=== PATIENT | male | born 1965 | race African-American/Black ===

== ENCOUNTER 2016-09-24 15:11 | Emergency (ER) | payer SELFPAY ==
--- NOTE | 2016-09-24 15:36 | ER Document Report ---
ED Medical Screen (RME) - General Stated Complaint: COUGHING BLOOD Notes: 50 yo male c/o coughing up blood since last pm. bright red blood. no recent illness. + intermittant mid chest pain since last week. + shortness of breath. + smoker. + heavy ETOH. + hx/o HTN, out of meds x 3 months. TRAVEL OUTSIDE OF THE [place] IN LAST 30 DAYS: No - Related Data Allergies/Adverse Reactions: No Known Allergies Allergy (Unverified 10/26/15 13:36) Past Medical History - Past Medical History Cardiac Medical History: Reports: Hx Hypertension Physical Exam - Vital signs Vitals: Temp Pulse Resp BP Pulse Ox 98.5 F 85 18 260/130 H 98 09/24/16 15:29 09/24/16 15:29 09/24/16 15:29 09/24/16 15:29 09/24/16 15:29 Course - Vital Signs Vital signs: Temp Pulse Resp BP Pulse Ox 98.5 F 85 18 260/130 H 98 09/24/16 15:29 09/24/16 15:29 09/24/16 15:29 09/24/16 15:29 09/24/16 15:29
[2016-09-24 16:06] LABS: ABSOLUTE BASOPHILS # (AUTO) 0.1 10^3/uL (0.0-0.2); ABSOLUTE EOSINOPHILS # (AUTO) 0.1 10^3/uL (0.0-0.6); ABSOLUTE LYMPHOCYTES (AUTO) 4.5 10^3/uL (0.5-4.7); ABSOLUTE MONOCYTES (AUTO) 0.6 10^3/uL (0.1-1.4); ABSOLUTE NEUT (AUTO) 5.3 10^3/uL (1.7-8.2); BASOPHILS % (AUTO) 0.6 % (0-2); EOSINOPHILS % (AUTO) 0.7 % (0-6); HEMATOCRIT 42.6 % (37.9-51.0); HEMOGLOBIN 14.7 g/dL (13.5-17.0); HGB HCT DIFFERENCE 1.5; LYMPHOCYTES % (AUTO) 42.3 % (13-45); MEAN CORPUSCULAR HGB CONC 34.4 g/dL (32.0-36.0); MEAN CORPUSCULAR VOLUME 93 fl (80-97); MONOCYTES % (AUTO) 5.9 % (3-13); RED BLOOD COUNT 4.59 10^6/uL (4.35-5.55); RED CELL DISTRIBUTION WIDTH 12.7 % (11.5-14.0); SEGMENTED NEUTROPHILS % (AUTO) 50.5 % (42-78); WHITE BLOOD COUNT 10.6 10^3/uL (4.0-10.5)
[2016-09-24 16:25] LABS: ALANINE AMINOTRANSFERASE 99 U/L (21-72); ALBUMIN 4.2 g/dL (3.5-5.0); ALKALINE PHOSPHATASE 281 U/L (38-126); ANION GAP 9 (5-19); ASPARTATE AMINO TRANSFERASE 103 U/L (17-59); BILIRUBIN,TOTAL 0.9 mg/dL (0.2-1.3); BLOOD UREA NITROGEN 15 mg/dL (7-20); CALCIUM 9.6 mg/dL (8.4-10.2); CARBON DIOXIDE 29 mmol/L (22-30); CHLORIDE 97 mmol/L (98-107); CREATINE KINASE 159 U/L (55-170); CREATININE RESULT 0.83 mg/dL (0.52-1.25); GLUCOSE 353 mg/dL (75-110); LIPASE 186.6 U/L (23-300); POTASSIUM 4.2 mmol/L (3.6-5.0); SODIUM 135.3 mmol/L (137-145)
[2016-09-24 16:44] LABS: CREATINE KINASE MB 1.56 ng/mL (<4.55); TROPONIN I 0.02 ng/mL
[2016-09-24] MEDS ORDERED: LOSARTAN POTASSIUM 50 MG TABLET PO ONE (17:58)
[2016-09-24] MEDS ORDERED: METOPROLOL TARTRATE 50 MG TABLET PO ONE (17:59)
[2016-09-24] MEDS ORDERED: AMLODIPINE BESYLATE 10 MG TABLET PO ONE (17:59)
--- NOTE | 2016-09-24 18:03 | ER Document Report ---
ED General - General Mode of Arrival: Ambulatory Information source: Patient TRAVEL OUTSIDE OF THE [place] IN LAST 30 DAYS: No - HPI Patient complains to provider of: hemoptysis Onset: Other - last night Associated symptoms: Other - see above <ARSENIO DOMINGUEZ - Last Filed: 09/24/16 17:56> <DEVIN BRADY - Last Filed: 09/24/16 19:14> - General Chief Complaint: Chest Pain Stated Complaint: COUGHING BLOOD Notes: 50 year old male with history of hypertension presents to the ED complaining of hemoptysis that started last night while eating a grape. Patient describes the sputum as bright red blood. Patient states that he has not been taking his hypertensive medication for 6 months now and is aware that he is hypertensive. Patient admits that he can't afford a doctor. Patient claims that he has no refills left on his prescription, but does have a few pills that he has saved. Patient was last seen in the ED on 10/26/2015 where he was admitted and discharged with Norvasc 10mg daily, Metoprolol 50mg BID, Losartan 100mg daily, Ibuprofen, and [place]. Patient states that he does not want to be admitted today and reiterates that the last time he was here for hypertension, his blood pressure was only brought down by a few points over the course of "three days." (ARSENIO DOMINGUEZ) - Related Data Allergies/Adverse Reactions: No Known Allergies Allergy (Unverified 10/26/15 13:36) Past Medical History - General Information source: Patient - Social History Smoking Status: Current Every Day Smoker Chew tobacco use (# tins/day): No Frequency of alcohol use: daily Family History: Hypertension - Past Medical History Cardiac Medical History: Reports: Hx Hypertension Renal/ Medical History: Denies: Hx Peritoneal Dialysis Surgical Hx: Negative <ARSENIO DOMINGUEZ - Last Filed: 09/24/16 17:56> Review of Systems - Review of Systems Constitutional: No symptoms reported EENT: No symptoms reported Cardiovascular: No symptoms reported Respiratory: See HPI, Cough, Hemoptysis Gastrointestinal: No symptoms reported Genitourinary: No symptoms reported Male Genitourinary: No symptoms reported Musculoskeletal: No symptoms reported Skin: No symptoms reported Hematologic/Lymphatic: No symptoms reported Neurological/Psychological: No symptoms reported -: Yes All other systems reviewed and negative <ARSENIO DOMINGUEZ - Last Filed: 09/24/16 17:56> Physical Exam - Vital signs Interpretation: Hypertensive - General General appearance: Alert In distress: None - HEENT Head: Normocephalic, Atraumatic Eyes: Normal Extraocular movements intact: Yes Pupils: PERRL Mouth/Lips: Other - Large 1st upper right molar is actively bleeding and appears to be the source of blood that the patient is coughing up.. No: Normal - Respiratory Respiratory status: No respiratory distress - Cardiovascular Rhythm: Regular - Abdominal Inspection: Normal - Back Back: Normal - Extremities General upper extremity: Normal inspection, Normal ROM General lower extremity: Normal inspection, Normal ROM - Neurological Neuro grossly intact: Yes - Psychological Associated symptoms: Normal affect, Normal mood - Skin Skin Temperature: Warm Skin Moisture: Dry Skin Color: Normal <ARSENIO DOMINGUEZ - Last Filed: 09/24/16 17:56> <DEVIN BRADY - Last Filed: 09/24/16 19:14> - Vital signs Vitals: Temp Pulse Resp BP Pulse Ox 98.5 F 85 18 260/130 H 98 09/24/16 15:29 09/24/16 15:29 09/24/16 15:29 09/24/16 15:29 09/24/16 15:29 (ARSENIO DOMINGUEZ) (DEVIN BRADY) Course - Laboratory Result Diagrams: 09/24/16 15:45 09/24/16 15:45 <ARSENIO DOMINGUEZ - Last Filed: 09/24/16 17:56> - Laboratory Result Diagrams: 09/24/16 15:45 09/24/16 15:45 - EKG Interpretation by Me EKG shows normal: Sinus rhythm, [place], ST-T Waves. abnormal: Intervals, QRS Complexes Rate: Normal - 81 Rhythm: NSR [place]/QRS: IVCD Voltage: Consistant with LVH P Waves: LAE When compared to previous EKG there are: No significant change <DEVIN BRADY - Last Filed: 09/24/16 19:14> - Re-evaluation Re-evalutation: 09/24/16 18:52 The patient's A1c is 10.6 with a blood sugar of 353 I reviewed the lab findings and reinforced the risks to his long-term health for not treating his blood pressure, and now leading diabetes go untreated. He wants to go home now, his blood pressure still remains elevated, he tells me that I will not be able to get it down because he stressed and refuses to stay to allow me to give additional medication to get his pressure in the lower. He is also demanding a 3 month supply of his medications because he states he cannot afford to go see a doctor. I repeated again that if he saved his cigarette money and beer money, he would have plenty of money for medication and doctor's visit. He lists his occupation as unemployed with no clear explanation or justification for this that I can see. I told him I would provide three-month supply of medication, he would have to promise that he would try to see a doctor and he did make that promise. (DEVIN BRADY) - Vital Signs Vital signs: Temp Pulse Resp BP Pulse Ox 98.5 F 85 21 H 221/105 H 96 09/24/16 15:29 09/24/16 15:29 09/24/16 18:31 09/24/16 18:31 09/24/16 18:31 (ARSENIO DOMINGUEZ) (DEVIN BRADY) - Laboratory Laboratory results interpreted by me: 09/24/16 09/24/16 09/24/16 15:45 15:45 15:45 WBC 10.6 H Sodium 135.3 L Chloride 97 L Glucose 353 H Hemoglobin A1c % 10.6 H AST 103 H ALT 99 H Alkaline Phosphatase 281 H (ARSENIO DOMINGUEZ) (DEVIN BRADY) Discharge <ARSENIO DOMINGUEZ - Last Filed: 09/24/16 17:56> <DEVIN BRADY - Last Filed: 09/24/16 19:14> - Discharge Clinical Impression: Uncontrolled hypertension High blood pressure Qualifiers: Hypertension type: essential hypertension Qualified Code(s): I10 - Essential ( primary) hypertension Diabetes Qualifiers: Diabetes mellitus type: type 2 Diabetes mellitus complication status: without complication 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 This is called "hypertension." You need treatment of your blood pressure. Hypertension: The patient has been informed that they have Hypertension based on a blood pressure reading in the emergency department. I recommend that the patient call a primary care provider or a physician of their choice this week to arrage follow up for further management Hypertension. If left untreated, high blood pressure greatly increases your risk of heart attack and stroke. Please don't ignore this problem. If you have blood pressure medicine but aren't using it regularly, start taking it again. Some simple things you can do to help are: Get some aerobic exercise for at least 20 minutes on a daily basis. (See your doctor before beginning any new exercise program.) Eat a low-fat diet. Lose excess weight. Avoid salty foods and avoid adding salt to any of the foods you eat. Avoid diet pills, decongestants, "energizing" herbs, and other medicines that elevate blood pressure. There are many different medicines that treat blood pressure. If your medication causes unpleasant side effects, call your doctor. There are others you can try. Treating hypertension is a life-long investment in your health. Diabetes: You have an abnormally high blood sugar called diabetes. Uncontrolled high blood sugar leads to early heart disease, strokes, nerve damage, eye damage, and kidney damage. All diabetics should follow a diet designed to control the blood sugar. Overweight diabetics should exercise regularly and lose weight. If this is not sufficient to control the blood sugar, pills or insulin shots are necessary. Younger people who develop diabetes almost always require insulin daily. Home testing of blood sugars or urine sugar is required. Diabetic teaching is available to help you figure insulin doses and monitor the blood sugar. Call the physician if there is faintness, excess sleepiness, or very rapid breathing. If hypoglycemia (LOW blood sugar) develops, symptoms are shakiness, weakness, sweating, and confusion. In this case, you should eat or drink something with sugar at once. //////////////////////////////////////////////////////////////////////////////// //////////////////////////////////////////////////////////////////////////////// You have decided to leave AGAINST MEDICAL ADVICE before we have gotten your blood pressure down to a reasonable level. You have been informed that out of control blood pressure can lead to heart attack, stroke, and intracranial hemorrhage. You have decided to take those risks and will not hold any of your providers here responsible for any poor outcome. Take medications as prescribed for high blood pressure and diabetes. Try to lose weight. Stop smoking and drinking alcohol. Check your blood pressure at home every day. Follow-up with a local medical provider in the next several days to manage your high blood pressure and diabetes. RETURN TO THE EMERGENCY ROOM IF ANY NEW OR WORSENING SYMPTOMS. Prescriptions: Amlodipine Besylate [Norvasc 10 mg Tablet] 10 mg PO DAILY #30 tablet Losartan Potassium [Cozaar 100 mg Tablet] 100 mg PO DAILY #30 tablet Metformin HCl 850 mg PO Q12 #60 tablet Metoprolol Tartrate [Lopressor 50 mg Tablet] 50 mg PO Q12H #60 tablet Scribe Attestation: 09/24/16 19:10 I personally performed the services described in the documentation, reviewed and edited the documentation which was dictated to the scribe in my presence, and it accurately records my words and actions. (DEVIN BRADY) Scribe Documentation - Scribe Written by Sharri:: Sharri Weber, 09/24/2016 [id number] acting as scribe for :: Mayra <ARSENIO DOMINGUEZ - Last Filed: 09/24/16 17:56>
[2016-09-24 18:54] VITALS: BP 229/121
[2016-09-24] MEDS ORDERED: CLONIDINE HCL 0.2 MG TABLET PO ONE (19:03)
[2016-09-24] MEDS ORDERED: METFORMIN HCL 850 MG TABLET PO PRN (19:03)
--- NOTE | 2016-09-24 21:45 | EKG REPORT ---
SEVERITY:- ABNORMAL ECG - SINUS RHYTHM PROBABLE LEFT ATRIAL ABNORMALITY NONSPECIFIC INTRAVENTRICULAR CONDUCTION DELAY LVH WITH SECONDARY REPOLARIZATION ABNORMALITY : Confirmed by: Juana Velez 24-Sep-2016 21:44:03
== END 2016-09-24 19:20 | disposition left against medical advice (07) ==
LOC: ER 15:11
DX: I10 Essential (primary) hypertension (principal); E11.9 Type 2 diabetes mellitus without complications; R04.2 Hemoptysis; R07.9 Chest pain, unspecified; R06.02 Shortness of breath; F17.200 Nicotine dependence, unspecified, uncomplicated
CPT/HCPCS: 36415; 71020; 80053; 82550; 82553; 83036; 83690; 84484; 85025; 93005; 93010; 99285

== ENCOUNTER 2018-09-04 09:09 | Emergency (ER) | payer SELFPAY ==
[2018-09-04 09:20] VITALS: BP 258/136
[2018-09-04] MEDS ORDERED: CLONIDINE HCL 0.2 MG TABLET PO ONE (10:58)
[2018-09-04] MEDS ORDERED: OXYCODONE-ACETAMINOPHEN 5-325 MG TABLET PO ONE (10:58)
--- NOTE | 2018-09-04 11:00 | ER Document Report ---
ED Medical Screen (RME) - General Chief Complaint: Abdominal Pain Stated Complaint: ABDOMINAL PAIN Time Seen by Provider: 09/04/18 10:54 Notes: 52-year-old male patient comes emergency room complaining of abdominal pain for a few months is been getting worse. He is found to have a blood pressure of 258/136 which she states is normal for him. He does not take any medications and does not go to see doctors. He does drink alcohol on a daily basis. He was admitted here almost 3 years ago for accelerated hypertension. Brief exam shows a very tender firm mass in the supraumbilical region which is very suggestive of an incarcerated hernia. I have greeted and performed a rapid initial assessment of this patient. A comprehensive ED assessment and evaluation of the patient, analysis of test results and completion of the medical decision making process will be conducted by additional ED providers. TRAVEL OUTSIDE OF THE [place] IN LAST 30 DAYS: No - Related Data Allergies/Adverse Reactions: No Known Allergies Allergy (Unverified 10/26/15 13:36) Past Medical History - Past Medical History Cardiac Medical History: Reports: Hx Hypertension Renal/ Medical History: Denies: Hx Peritoneal Dialysis Physical Exam - Vital signs Vitals: Temp Pulse Resp BP Pulse Ox 98.5 F 80 16 258/136 H 100 09/04/18 09:18 09/04/18 09:18 09/04/18 09:18 09/04/18 09:18 09/04/18 09:18 Course - Vital Signs Vital signs: Temp Pulse Resp BP Pulse Ox 98.5 F 80 16 258/136 H 100 09/04/18 09:18 09/04/18 09:18 09/04/18 09:18 09/04/18 09:18 09/04/18 09:18
[2018-09-04 11:37] LABS: ABSOLUTE BASOPHILS # (AUTO) 0.2 10^3/uL (0.0-0.2); ABSOLUTE LYMPHOCYTES (AUTO) 4.6 10^3/uL (0.5-4.7); ABSOLUTE MONOCYTES (AUTO) 0.6 10^3/uL (0.1-1.4); ABSOLUTE NEUT (AUTO) 6.9 10^3/uL (1.7-8.2); BASOPHILS % (AUTO) 1.5 % (0-2); EOSINOPHILS % (AUTO) 0.3 % (0-6); HEMOGLOBIN 16.7 g/dL (13.5-17.0); LYMPHOCYTES % (AUTO) 37.1 % (13-45); MEAN CORPUSCULAR HGB CONC 35.5 g/dL (32.0-36.0); MEAN CORPUSCULAR VOLUME 93 fl (80-97); MONOCYTES % (AUTO) 5.1 % (3-13); PLATELET COUNT 245 10^3/uL (150-450); RED BLOOD COUNT 5.05 10^6/uL (4.35-5.55); TOTAL CELLS COUNTED % (AUTO) 100 %; WHITE BLOOD COUNT 12.3 10^3/uL (4.0-10.5)
[2018-09-04] MEDS ORDERED: NORMAL SALINE 1000 ML 1,000 ML IV ONE (11:59)
[2018-09-04] MEDS ORDERED: MORPHINE SULFATE 10 MG/ML INJ IV ONE (12:02)
[2018-09-04] MEDS ORDERED: ONDANSETRON HCL INJ/PF 4 MG/2 ML SDV IV ONE (12:03)
[2018-09-04 12:53] LABS: ALANINE AMINOTRANSFERASE 98 U/L (21-72); ALBUMIN 4.1 g/dL (3.5-5.0); ALKALINE PHOSPHATASE 171 U/L (38-126); ANION GAP 7 (5-19); ASPARTATE AMINO TRANSFERASE 95 U/L (17-59); BILIRUBIN,DIRECT 0.8 mg/dL (0.0-0.4); BILIRUBIN,TOTAL 1.5 mg/dL (0.2-1.3); BLOOD UREA NITROGEN 11 mg/dL (7-20); CALCIUM 9.4 mg/dL (8.4-10.2); CARBON DIOXIDE 33 mmol/L (22-30); CHLORIDE 99 mmol/L (98-107); CREATINE KINASE 80 U/L (55-170); GLUCOSE 159 mg/dL (75-110); POTASSIUM 3.5 mmol/L (3.6-5.0); SODIUM 139.2 mmol/L (137-145); TOTAL PROTEIN 7.9 g/dL (6.3-8.2)
[2018-09-04] MEDS ORDERED: AMLODIPINE BESYLATE 10 MG TABLET PO ONE (13:39)
--- NOTE | 2018-09-04 13:43 | ER Document Report ---
ED General - General Chief Complaint: Abdominal Pain Stated Complaint: ABDOMINAL PAIN Time Seen by Provider: 09/04/18 10:54 TRAVEL OUTSIDE OF THE [place] IN LAST 30 DAYS: No - HPI Patient complains to provider of: Abdominal pain Notes: Patient coming in for evaluation of abdominal pain. Patient was seen by triage provider note is provided below 52-year-old male patient comes emergency room complaining of abdominal pain for a few months is been getting worse. He is found to have a blood pressure of 258/136 which she states is normal for him. He does not take any medications and does not go to see doctors. He does drink alcohol on a daily basis. He was admitted here almost 3 years ago for accelerated hypertension. Brief exam shows a very tender firm mass in the supraumbilical region which is very suggestive of an incarcerated hernia. Upon my evaluation immediately into the patient's room because of this note. Patient's stating woke up this morning with a small bump in his abdomen is very painful. Of note the patient was noted to be significantly hypertensive in triage states he is noncompliant with his medications has been out of blood pressure medications for "quite some time". Patient denies any fevers chills nausea vomiting diarrhea. - Related Data Allergies/Adverse Reactions: No Known Allergies Allergy (Unverified 10/26/15 13:36) Past Medical History - Social History Smoking Status: Current Every Day Smoker Frequency of alcohol use: daily Family History: Hypertension Patient has suicidal ideation: No Patient has homicidal ideation: No - Past Medical History Cardiac Medical History: Reports: Hx Hypertension Endocrine Medical History: Reports: Hx Diabetes Mellitus Type 2 Renal/ Medical History: Denies: Hx Peritoneal Dialysis Review of Systems - Review of Systems Constitutional: No symptoms reported EENT: No symptoms reported Cardiovascular: No symptoms reported Respiratory: No symptoms reported Gastrointestinal: Abdominal pain Genitourinary: No symptoms reported Male Genitourinary: No symptoms reported Musculoskeletal: No symptoms reported Skin: No symptoms reported Hematologic/Lymphatic: No symptoms reported Neurological/Psychological: No symptoms reported -: Yes All other systems reviewed and negative Physical Exam - Vital signs Vitals: Temp Pulse Resp BP Pulse Ox 98.5 F 80 16 258/136 H 100 09/04/18 09:18 09/04/18 09:18 09/04/18 09:18 09/04/18 09:18 09/04/18 09:18 Interpretation: Hypertensive - General General appearance: Appears well, Alert - HEENT Head: Normocephalic, Atraumatic Eyes: Normal Pupils: PERRL - Respiratory Respiratory status: No respiratory distress Chest status: Nontender Breath sounds: Normal Chest palpation: Normal - Cardiovascular Rhythm: Regular Heart sounds: Normal auscultation Murmur: No - Abdominal Inspection: Normal Distension: No distension Bowel sounds: Normal Tenderness: Tender - Patient with a palpable mass in the mid abdomen with a small umbilical hernia mass is significant tender auscultation over the mass does reveal bowel sounds Organomegaly: No organomegaly - Back Back: Normal, Nontender - Extremities General upper extremity: Normal inspection, Nontender, Normal color, Normal ROM, Normal temperature General lower extremity: Normal inspection, Nontender, Normal color, Normal ROM, Normal temperature, Normal weight bearing. No: Reshma's sign - Neurological Neuro grossly intact: Yes Cognition: Normal Orientation: AAOx4 Tyra Coma Scale Eye Opening: Spontaneous [place] Coma Scale Verbal: Oriented [place] Coma Scale Motor: Obeys Commands Tyra Coma Scale Total: 15 Speech: Normal Motor strength normal: LUE, RUE, LLE, RLE Sensory: Normal - Psychological Associated symptoms: Normal affect, Normal mood - Skin Skin Temperature: Warm Skin Moisture: Dry Skin Color: Normal Course - Re-evaluation Re-evalutation: 09/04/18 15:19 Concern for patient with incarcerated hernia patient was placed in Trendelenburg patient was given IV narcotic pain medication as of this was able to reduce the hernia patient with a small defect did have her surgeon solar installation helper come to evaluate and states the patient follow-up as outpatient as of the hernia is now reduced. Laboratory studies not show slightly elevated LFTs more likely due to the patient's alcohol drinking. Patient was educated about diet hypertension and the need to be on medications and follow-up with primary care physician. Inform ation will be given to the director of social services so that we can establish the patient primary care for his hypertension is uncontrolled also hopefully establish care to initiate treatment for his hernia. Patient was instructed to return to the ER if his hernia becomes stuck again otherwise to apply gentle pressure if it does stick out to reduce it. Patient states understanding discharged home 09/04/18 15:20 Upon final evaluation patient is complaining of the TV is not working patient requesting that I fix the TV volume multiple attempts were performed by myself however is unable to fix the TV patient became very upset that the TV did not have volume to it I explained to the patient that he would be briefly discharged and apologize for not being able to repair the TV - Vital Signs Vital signs: Temp Pulse Resp BP Pulse Ox 98.5 F 80 16 258/136 H 100 09/04/18 09:18 09/04/18 09:18 09/04/18 09:18 09/04/18 09:18 09/04/18 09:18 - Laboratory Result Diagrams: 09/04/18 11:20 09/04/18 12:12 Laboratory results interpreted by me: 09/04/18 09/04/18 11:20 12:12 WBC 12.3 H Potassium 3.5 L Carbon Dioxide 33 H Glucose 159 H Total Bilirubin 1.5 H Direct Bilirubin 0.8 H AST 95 H ALT 98 H Alkaline Phosphatase 171 H Discharge - Discharge Clinical Impression: Hypertension Qualifiers: Hypertension type: essential hypertension Qualified Code(s): I10 - Essential (primary) hypertension Ventral hernia Qualifiers: Obstruction and gangrene presence: without obstruction or gangrene Qualified Code(s): K43.9 - Ventral hernia without obstruction or gangrene Condition: Good Disposition: HOME, SELF-CARE Instructions: Hernia ([facility]), High Blood Pressure, Requiring Treatment ([facility]) Additional Instructions: Your abdominal pain today was because by bowel protruding through your hernia. We were able to reduce this our surgeon solar installation helper we will like you to follow-up as outpatient. Your laboratory results not show any critical pathology at this time Your blood pressure is significantly elevated is very important to continue to take blood pressure medication please take the amlodipine as prescribed Return to the ER if you continue to have belly pain or unable to reduce your hernia Please make sure we have good contact information as that our director of social services will be calling you to help establish follow-up care. Prescriptions: Amlodipine Besylate [Norvasc 10 mg Tablet] 10 mg PO DAILY #30 tablet
== END 2018-09-04 15:04 | disposition home or self-care (01) ==
LOC: ER 09:09
DX: K43.9 Ventral hernia without obstruction or gangrene (principal); R10.9 Unspecified abdominal pain; I10 Essential (primary) hypertension; F17.200 Nicotine dependence, unspecified, uncomplicated; E11.9 Type 2 diabetes mellitus without complications
CPT/HCPCS: 99283; 96374; 96375; 36415; 82550; 85025; 80053; 83605; J2270; J2405; J7030

== ENCOUNTER 2018-09-22 12:18 | Emergency (ER) | payer SELFPAY ==
[2018-09-22 12:33] VITALS: BP 179/107
[2018-09-22] MEDS ORDERED: ONDANSETRON 4 MG TAB.RAPDIS PO ONE (12:47)
[2018-09-22] MEDS ORDERED: KETOROLAC TROMETHAMINE 60 MG/2 ML SDV IM ONE (12:48)
[2018-09-22] MEDS ORDERED: OXYCODONE-ACETAMINOPHEN 5-325 MG TABLET PO ONE (12:48)
[2018-09-22] MEDS ORDERED: DICYCLOMINE HCL INJ 20 MG/2 ML AMPULE IM ONE (12:48)
--- NOTE | 2018-09-22 12:51 | ER Document Report ---
ED GI/ - General Chief Complaint: Abdominal Pain Stated Complaint: ABDOMINAL PAIN Time Seen by Provider: 09/22/18 12:41 Mode of Arrival: Ambulatory Information source: Patient Notes: Chief complaint: abdominal pain: History of complain:( obtained from----patient) 52 years old male with a known history of umbilical hernia this morning when he was trying to open up his on suddenly felt a sharp pain over the periumbilical region and swelling therefore present to the ED. No nausea vomiting or diarrhea. No fever chills or other constitutional symptoms. Onset: Just prior to arrival sudden Duration: Just prior to arrival Severity: Moderate Quality: Sharp Context: Umbilical hernia Exacerbating factor and relieving factors: Any movement REVIEW OF SYSTEMS: CONSTITUTIONAL : Denies fever, chills, or sweats. Denies recent illness. EENT: Denies eye, ear, throat, or mouth pain or symptoms. Denies nasal or sinus congestion or discharge. Denies throat, tongue, or mouth swelling or difficulty swallowing. CARDIOVASCULAR: Denies chest pain. Denies palpitations or racing or irregular heart beat. Denies ankle edema. RESPIRATORY: Denies cough, cold, or chest congestion. Denies shortness of breath, difficulty breathing, or wheezing. GASTROINTESTINAL: As per history of complain GENITOURINARY: Denies difficulty urinating, painful urination, burning, frequency, blood in urine, or discharge. FEMALE GENITOURINARY: Denies vaginal bleeding, heavy or abnormal periods, irregular periods. Denies vaginal discharge or odor. MUSCULOSKELETAL: Denies back or neck pain or stiffness. Denies joint pain or swelling. SKIN: Denies rash, lesions or sores. HEMATOLOGIC : Denies easy bruising or bleeding. LYMPHATIC: Denies swollen, enlarged glands. NEUROLOGICAL: Denies confusion or altered mental status. Denies passing out or loss of consciousness. Denies dizziness or lightheadedness. Denies headache. Denies weakness or paralysis or loss of use of either side. Denies problems with gait or speech. Denies sensory loss, numbness, or tingling. Denies seizures. PSYCHIATRIC: Denies anxiety or stress. Denies depression, suicidal ideation, or homicidal ideation. ALL OTHER SYSTEMS REVIEWED AND NEGATIVE. PHYSICAL EXAMINATION: GENERAL: Seems to be in mild to moderate discomfort HEAD: Atraumatic, normocephalic. EYES: Pupils equal round and reactive to light, extraocular movements intact, conjunctiva are normal. ENT: Nares patent, oropharynx clear without exudates. Moist mucous membranes. NECK: Normal range of motion, supple without lymphadenopathy LUNGS: Breath sounds clear to auscultation bilaterally and equal. No wheezes rales or rhonchi. HEART: Regular rate and rhythm without murmurs ABDOMEN: Hernia noted just above the umbilicus which is bulging, size of a tennis ball. Positive bowel sounds. Female : deferred NEUROLOGICAL: Cranial nerves grossly intact. Normal speech, normal gait. Normal sensory, motor exams PSYCH: Normal mood, normal affect. SKIN: Warm, Dry, normal turgor, no rashes or lesions noted. Dictation was performed using [employer] voice recognition software TRAVEL OUTSIDE OF THE [place] IN LAST 30 DAYS: No - HPI Notes: 09/22/18 12:50 Dictated - Related Data Allergies/Adverse Reactions: No Known Allergies Allergy (Verified 09/22/18 12:21) Past Medical History - Social History Smoking Status: Current Every Day Smoker Cigarette use (# per day): No Chew tobacco use (# tins/day): No Smoking Education Provided: No Drug Abuse: None Lives with: Family Family History: Reviewed & Not Pertinent, Hypertension Patient has suicidal ideation: No Patient has homicidal ideation: No - Past Medical History Cardiac Medical History: Reports: Hx Hypertension Endocrine Medical History: Reports: Hx Diabetes Mellitus Type 2 Renal/ Medical History: Denies: Hx Peritoneal Dialysis Review of Systems - Review of Systems Notes: Dictated Physical Exam - Vital signs Vitals: Temp Resp BP Pulse Ox 98.6 F 15 179/107 H 99 09/22/18 12:30 09/22/18 12:30 09/22/18 12:30 09/22/18 12:30 - Notes Notes: Dictated Course - Re-evaluation Re-evalutation: 09/22/18 12:51 Umbilical hernia was gently reduced without any complications. - Vital Signs Vital signs: Temp Pulse Resp BP Pulse Ox 98.6 F 15 179/107 H 99 09/22/18 12:30 09/22/18 12:30 09/22/18 12:30 09/22/18 12:30 - Laboratory Result Diagrams: 09/22/18 13:30 09/22/18 13:30 Laboratory results interpreted by me: 09/22/18 09/22/18 13:30 13:30 WBC 12.6 H Potassium 3.3 L Glucose 148 H Total Bilirubin 1.6 H Direct Bilirubin 1.0 H AST 121 H ALT 122 H Alkaline Phosphatase 182 H Total Protein 9.0 H Discharge - Discharge Clinical Impression: Abdominal pain Qualifiers: Abdominal location: generalized Qualified Code(s): R10.84 - Generalized abdominal pain Umbilical hernia Qualifiers: Obstruction and gangrene presence: without obstruction or gangrene Qualified Code(s): K42.9 - Umbilical hernia without obstruction or gangrene Cholelithiasis Qualifiers: Cholelithiasis location: gallbladder Cholecystitis presence: without cholecystitis Biliary obstruction: without biliary obstruction Qualified Code(s): K80.20 - Calculus of gallbladder without cholecystitis without obstruction Condition: Fair Disposition: HOME, SELF-CARE Instructions: Abdominal Pain ([facility]), Gallbladder Disease ([facility]), Umbilical Hernia ([facility]) Prescriptions: Oxycodone HCl 5 mg PO TID #10 capsule
--- NOTE | 2018-09-22 13:39 | RADIOLOGY REPORT (SQ) ---
EXAM DESCRIPTION: ACUTE ABDOMEN SERIES COMPLETED DATE/TIME: 09/22/2018 1:18 pm REASON FOR STUDY: Abdominal pain COMPARISON: AP chest film 09/24/2016, 10/26/2015 NUMBER OF VIEWS: Three views. TECHNIQUE: Frontal chest, supine abdomen and upright abdomen radiographic images acquired. LIMITATIONS: None. FINDINGS: CHEST: Lungs clear of infiltrates. Cardiac silhouette size, abdiel unremarkable. FREE AIR: None. No abnormal gas collections. BOWEL GAS PATTERN: Few air-filled borderline dilated small bowel loops in the mid epigastrium. This is an abnormal but nonspecific bowel gas pattern and could indicate regional inflammation with sentin el loops, or could represent early or partial small bowel obstruction. CALCIFICATIONS: No suspicious calcifications. HARDWARE: None in the abdomen. SOFT TISSUES: No gross mass or suggestion of organomegaly. BONES: No acute fracture. No worrisome bone lesions. OTHER: No other significant finding. IMPRESSION: Few air-filled borderline dilated small bowel loops in the mid epigastrium. This is an abnormal but nonspecific bowel gas pattern and could indicate regional inflammation with sentinel loo ps, or could represent early or partial small bowel obstruction. TECHNICAL DOCUMENTATION: JOB ID: [id number] [employer]- All Rights Reserved Reading location - IP/workstation name: [email or web address]
[2018-09-22 14:03] LABS: ABSOLUTE BASOPHILS # (AUTO) 0.2 10^3/uL (0.0-0.2); ABSOLUTE EOSINOPHILS # (AUTO) 0.1 10^3/uL (0.0-0.6); ABSOLUTE MONOCYTES (AUTO) 0.7 10^3/uL (0.1-1.4); ABSOLUTE NEUT (AUTO) 7.7 10^3/uL (1.7-8.2); BASOPHILS % (AUTO) 1.3 % (0-2); EOSINOPHILS % (AUTO) 0.4 % (0-6); HEMATOCRIT 47.4 % (37.9-51.0); HEMOGLOBIN 16.8 g/dL (13.5-17.0); LYMPHOCYTES % (AUTO) 31.8 % (13-45); MEAN CORPUSCULAR HEMOGLOBIN 32.8 pg (27.0-33.4); MEAN CORPUSCULAR HGB CONC 35.5 g/dL (32.0-36.0); MEAN CORPUSCULAR VOLUME 92 fl (80-97); MONOCYTES % (AUTO) 5.4 % (3-13); PLATELET COUNT 269 10^3/uL (150-450); RED BLOOD COUNT 5.13 10^6/uL (4.35-5.55); RED CELL DISTRIBUTION WIDTH 12.8 % (11.5-14.0); SEGMENTED NEUTROPHILS % (AUTO) 61.1 % (42-78); TOTAL CELLS COUNTED % (AUTO) 100 %; WHITE BLOOD COUNT 12.6 10^3/uL (4.0-10.5)
[2018-09-22 14:17] LABS: ALANINE AMINOTRANSFERASE 122 U/L (21-72); ALBUMIN 4.8 g/dL (3.5-5.0); ALKALINE PHOSPHATASE 182 U/L (38-126); ANION GAP 13 (5-19); ASPARTATE AMINO TRANSFERASE 121 U/L (17-59); BILIRUBIN,TOTAL 1.6 mg/dL (0.2-1.3); BLOOD UREA NITROGEN 16 mg/dL (7-20); CALCIUM 10.1 mg/dL (8.4-10.2); CARBON DIOXIDE 29 mmol/L (22-30); CHLORIDE 98 mmol/L (98-107); GLUCOSE 148 mg/dL (75-110); POTASSIUM 3.3 mmol/L (3.6-5.0); SODIUM 139.7 mmol/L (137-145)
--- NOTE | 2018-09-22 18:30 | RADIOLOGY REPORT (SQ) ---
EXAM DESCRIPTION: CT ABD/PELVIS WITH IV ORAL COMPLETED DATE/TIME: 09/22/2018 5:12 pm REASON FOR STUDY: Umbilical hernia rule out obstruction COMPARISON: None. TECHNIQUE: CT scan of the abdomen and pelvis performed using helical scanning technique with dynamic intravenous contrast injection. Oral contrast. Images reviewed with lung, soft tissue, and bone win dows. Reconstructed coronal and sagittal MPR images reviewed. Delayed images for evaluation of the ur inary system also acquired. All images stored on PACS. All CT scanners at this facility use dose modulation, iterative reconstruction, and/or weight based d osing when appropriate to reduce radiation dose to as low as reasonably achievable (ALARA). [facility]: Dose Right [facility]: CareDose [facility]: Dose Right [facility]: Teradose 4D [facility]: Ondax CONTRAST TYPE AND DOSE: contrast/concentration: Isovue 350.00 mg/ml; Total Contrast Delivered: 100.0 ml; Total Saline Delivered: 72.0 ml RENAL FUNCTION: Not recorded here. Refer to the geodetic surveyor technologist notes. RADIATION DOSE: . LIMITATIONS: None. FINDINGS: LOWER CHEST: No significant findings. No nodules or infiltrates. LIVER: The liver is diffusely hypoattenuating. No masses. SPLEEN: Normal size. No focal lesions. PANCREAS: No masses. No significant calcifications. No adjacent inflammation or peripancreatic fluid collections. Pancreatic duct not dilated. GALLBLADDER: A small gallstone is present. ADRENAL GLANDS: No significant masses or asymmetry. RIGHT KIDNEY AND URETER: No solid masses. No significant calcifications. No hydronephrosis or hyd roureter. LEFT KIDNEY AND URETER: No solid masses. No significant calcifications. No hydronephrosis or hydr oureter. AORTA AND VESSELS: No aneurysm. No dissection. Renal arteries, SMA, celiac without stenosis. RETROPERITONEUM: No retroperitoneal adenopathy, hemorrhage or masses. BOWEL AND PERITONEAL CAVITY: No masses or inflammatory changes. No free fluid or peritoneal masses. APPENDIX: Not identified. PELVIS: Urinary bladder is normal. No abnormal pelvic mass or fluid collection. ABDOMINAL WALL: 2 small inguinal hernias are uncomplicated. There are 2 periumbilical hernias that c ontain only fat. BONES: Thoracolumbar spondylosis. No acute findings. OTHER: No other significant finding. IMPRESSION: Fatty liver. Cholelithiasis. Hernias as described. Osseous findings as described. Th ere is no bowel obstruction. TECHNICAL DOCUMENTATION: JOB ID: [id number] Quality ID # [id number]: Final reports with documentation of one or more dose reduction techniques (e.g., Au tomated exposure control, adjustment of the mA and/or kV according to patient size, use of iterative reconstruction technique) 2010 [employer]- All Rights Reserved Reading location - IP/workstation name: [email or web address]
== END 2018-09-22 20:07 | disposition home or self-care (01) ==
LOC: ER 12:18
DX: K80.20 Calculus of gallbladder without cholecystitis without obstruction (principal); K42.9 Umbilical hernia without obstruction or gangrene; R10.84 Generalized abdominal pain; R10.9 Unspecified abdominal pain; R10.33 Periumbilical pain; R19.05 Periumbilic swelling, mass or lump; F17.200 Nicotine dependence, unspecified, uncomplicated; I10 Essential (primary) hypertension; E11.9 Type 2 diabetes mellitus without complications
CPT/HCPCS: 99284; 96372; 36415; 85025; 80053; 74022; 74177; J0500; J1885; S0119

== ENCOUNTER 2018-10-01 13:06 | Emergency (ER) | payer SELFPAY ==
[2018-10-01] MEDS ORDERED: NORMAL SALINE 1000 ML 1,000 ML IV ONE (14:38)
[2018-10-01] MEDS ORDERED: MORPHINE SULFATE 10 MG/ML INJ IV ONE ×2 (14:39→20:05)
[2018-10-01] MEDS ORDERED: ONDANSETRON HCL INJ/PF 4 MG/2 ML SDV IV ONE (14:39)
--- NOTE | 2018-10-01 14:41 | ER Document Report ---
ED Medical Screen (RME) - General Chief Complaint: Abdominal Pain Stated Complaint: RASH, ABDOMINAL PAIN Time Seen by Provider: 10/01/18 14:32 Notes: Patient is a 52-year-old male that presents to the emergency department for chief complaint of abdominal pain, nausea and vomiting. Patient states his been having this pain for some time, he has not moved his bowels in almost a week, he does have an umbilical hernia which he states felt like it popped out and is causing him pain as well. He also complains he has had a rash over his body since his last visit. ROS: Other than noted above, the 12 point review of systems was reviewed with the patient and were negative, all pertinent findings are included in the HPI. PHYSICAL EXAMINATION: Vital signs reviewed. GENERAL: Patient appears uncomfortable HEAD: Atraumatic, normocephalic. EYES: Pupils equal round extraocular movements intact, conjunctiva are normal. ENT: Nares patent NECK: Normal range of motion CV: Heart regular rate and rhythm LUNGS: No respiratory distress Abdomen: Tenderness to palpation diffusely, mild, umbilical hernia present, I was able to reduce the hernia at bedside. Musculoskeletal: Normal range of motion NEUROLOGICAL: Normal speech PSYCH: Normal mood, normal affect. Skin: Diffuse maculopapular rash MDM: Patient seen and examined for rapid initial assessment. Vital signs reviewed. A comprehensive ED assessment and evaluation of the patient, analysis of test results and completion of the medical decision making process will be conducted by additional ED providers. *Note is created using voice recognition software and may contain spelling, syntax or grammatical errors. TRAVEL OUTSIDE OF THE [place] IN LAST 30 DAYS: No - Related Data Allergies/Adverse Reactions: No Known Allergies Allergy (Verified 09/22/18 12:21) Past Medical History - Past Medical History Cardiac Medical History: Reports: Hx Hypertension Endocrine Medical History: Reports: Hx Diabetes Mellitus Type 2 Renal/ Medical History: Denies: Hx Peritoneal Dialysis Physical Exam - Vital signs Vitals: Temp Pulse Resp BP Pulse Ox 98.6 F 88 20 226/139 H 100 10/01/18 13:32 10/01/18 13:32 10/01/18 13:32 10/01/18 13:32 10/01/18 13:32 Course - Vital Signs Vital signs: Temp Pulse Resp BP Pulse Ox 98.6 F 88 20 232/146 H 100 10/01/18 13:32 10/01/18 13:32 10/01/18 13:32 10/01/18 13:37 10/01/18 13:32
[2018-10-01 15:57] LABS: HEMATOCRIT 49.3 % (37.9-51.0); HEMOGLOBIN 17.6 g/dL (13.5-17.0); MEAN CORPUSCULAR HEMOGLOBIN 32.7 pg (27.0-33.4); MEAN CORPUSCULAR HGB CONC 35.7 g/dL (32.0-36.0); MEAN CORPUSCULAR VOLUME 92 fl (80-97); PLATELET COUNT 318 10^3/uL (150-450); RED BLOOD COUNT 5.37 10^6/uL (4.35-5.55); RED CELL DISTRIBUTION WIDTH 13.1 % (11.5-14.0); WHITE BLOOD COUNT 20.1 10^3/uL (4.0-10.5)
[2018-10-01 16:02] LABS: APPEARANCE,URINE SLIGHTLY-CLOUDY; BILIRUBIN,URINE SMALL (NEGATIVE); COLOR,URINE AMBER; GLUCOSE, URINE 50 mg/dL (NEGATIVE); KETONES,URINE NEGATIVE (NEGATIVE); LEUKOCYTE ESTERASE,URINE NEGATIVE (NEGATIVE); NITRITE,URINE NEGATIVE (NEGATIVE); PROTEIN,URINE 100 mg/dL (NEGATIVE)
--- NOTE | 2018-10-01 16:06 | RADIOLOGY REPORT (SQ) ---
EXAM DESCRIPTION: ABDOMEN 2 VIEWS COMPLETED DATE/TIME: 10/01/2018 3:52 pm REASON FOR STUDY: abdominal pain, umbilical hernia COMPARISON: 09/22/2018 NUMBER OF VIEWS: Two views. TECHNIQUE: Supine and erect/decubitus radiographic images of the abdomen acquired. LIMITATIONS: None. FINDINGS: FREE AIR: None. No abnormal gas collections. LUNG BASES: Clear. BOWEL GAS PATTERN: Resolution of the previously demonstrated mildly dilated small bowel loops in the mid and right side of the abdomen. Decrease in the small air-fluid levels on the upright image. CALCIFICATIONS: No suspicious calcifications. SOFT TISSUES: No gross mass or suggestion of organomegaly. HARDWARE: None in the abdomen. BONES: No acute fracture. No worrisome bone lesions. OTHER: No other significant finding. IMPRESSION: 1. Since the previous examination dated 09/22/2018, improvement in the gas pattern. Decr easing air-fluid levels on the upright image and resolution of the dilated small bowel loops. TECHNICAL DOCUMENTATION: JOB ID: [id number] [employer]- All Rights Reserved Reading location - IP/workstation name: [email or web address]
[2018-10-01 16:18] LABS: ABSOLUTE LYMPHOCYTES# (MANUAL) 5.6 10^3/uL (0.5-4.7); ABSOLUTE MONOCYTES # (MANUAL) 0.4 10^3/uL (0.1-1.4); ABSOLUTE NEUTROPHILS# (MANUAL) 13.9 10^3/uL (1.7-8.2); BASOPHILS % (MANUAL) 0 % (0-2); EOSINOPHILS % (MANUAL) 1 % (0-6); LYMPHOCYTES % (MANUAL) 28 % (13-45); MONOCYTES % (MANUAL) 2 % (3-13); SEGMENTED NEUTROPHILS % (MAN) 69 % (42-78); TOTAL CELLS COUNTED 100
[2018-10-01 16:23] LABS: OVALOCYTES SLIGHT; PLATELET COMMENT ADEQUATE; POIKILOCYTOSIS SLIGHT
--- NOTE | 2018-10-01 17:26 | ER Document Report ---
ED GI/ - General Chief Complaint: Abdominal Pain Stated Complaint: RASH, ABDOMINAL PAIN Time Seen by Provider: 10/01/18 14:32 Primary Care Provider: [facility] [Provider Group] - Follow up as needed [facility] [Provider Group] - 10/04/18 [facility] [Provider Group] - Follow up as needed Mode of Arrival: Ambulatory Information source: Patient Notes: She presents complaining of a 9-day history of abdominal pain that he states is from his umbilical hernia. Patient states he had nausea and vomiting yesterday x3 episodes. Patient denies any diarrhea. Patient states that he has had a decrease in appetite which got him concerned and prompted his return visit here today. Patient also complains of rash distributed generally to the body. Patient states that the rashes started to fade and improve. Patient states that he was concerned that it may be related to medications that he had been taking. Patient denies any difficulty breathing or facial swelling. Patient denies any urinary symptoms. Patient states that he has not had a bowel movement for the past several days. Patient does have a history of hypertension and states that he forgot to take his blood pressure medicine today. TRAVEL OUTSIDE OF THE [place] IN LAST 30 DAYS: No - HPI Patient complains to provider of: Abdominal pain, Vomiting. No: Diarrhea Onset: Other Timing/Duration: Persistent Quality of pain: Achy Pain Level: 4 Location: Other - Umbilical Associated symptoms: Constipation, Loss of appetite, Nausea, Vomiting. denies: Chest pain, Diarrhea, Dysuria, Fever, Urinary hesitancy, Urinary frequency, Urinary retention, Urinary urgency Exacerbated by: Denies Relieved by: Denies Similar symptoms previously: Yes Recently seen / treated by doctor: Yes - Related Data Allergies/Adverse Reactions: No Known Allergies Allergy (Verified 09/22/18 12:21) Past Medical History - General Information source: Patient - Social History Smoking Status: Current Every Day Smoker Smoking Education Provided: Yes Frequency of alcohol use: Heavy - Almost daily Drug Abuse: None Occupation: None Lives with: Spouse/Significant other Family History: Reviewed & Not Pertinent, Hypertension Patient has suicidal ideation: No Patient has homicidal ideation: No - Past Medical History Cardiac Medical History: Reports: Hx Hypertension EENT Medical History: Reports: Eyes - 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 denies: Fever, Recent illness EENT: No symptoms reported Cardiovascular: No symptoms reported. denies: Chest pain, Lightheaded Respiratory: No symptoms reported. denies: Cough Gastrointestinal: Abdominal pain, Nausea, Vomiting, Constipation, Poor appetite. denies: Diarrhea, Poor fluid intake Genitourinary: No symptoms reported. denies: Dysuria, Flank pain Male Genitourinary: No symptoms reported Musculoskeletal: No symptoms reported. denies: Back pain Skin: Rash - Rash distributed generally that is started to improve Hematologic/Lymphatic: No symptoms reported Neurological/Psychological: No symptoms reported. denies: Headaches Physical Exam - Vital signs Vitals: Temp Pulse Resp BP Pulse Ox 98.6 F 88 20 226/139 H 100 10/01/18 13:32 10/01/18 13:32 10/01/18 13:32 10/01/18 13:32 10/01/18 13:32 - General General appearance: Alert In distress: Mild - HEENT Head: Normocephalic, Atraumatic Eyes: Other - Patch over left eye Nasal: Normal Mouth/Lips: Normal Mucous membranes: Dry Pharynx: Normal Neck: Normal, Supple. No: Lymphadenopathy - Respiratory Respiratory status: No respiratory distress Chest status: Nontender Breath sounds: Normal. No: Rales, Rhonchi, Stridor, Wheezing Chest palpation: Normal - Cardiovascular Rhythm: Regular Heart sounds: S1 appreciated, S2 appreciated Murmur: No - Abdominal Inspection: Other - Small umbilical hernia Distension: No distension Bowel sounds: Normal Tenderness: Tender - Patient with diffuse abdominal tenderness in all quadrants of abdomen when palpated, no guarding. No: Guarding Organomegaly: No organomegaly - Back Back: Normal, Nontender. No: CVA tenderness - Extremities General upper extremity: Normal inspection, Normal strength General lower extremity: Normal inspection, Normal strength - Neurological Neuro grossly intact: Yes Cognition: Normal Tyra Coma Scale Eye Opening: Spontaneous [place] Coma Scale Verbal: Oriented Tyra Coma Scale Motor: Obeys Commands Tyra Coma Scale Total: 15 - Psychological Associated symptoms: Normal affect, Normal mood - Skin Skin Temperature: Warm Skin Moisture: Dry Skin Color: Erythema - Erythematous macular rash distributed over entire body Course - Re-evaluation Re-evalutation: 10/01/18 22:[address] Lora regarding patient evaluation and disposition. Reviewed patient's diagnostic evaluation from [facility] as well as from patient's previous ER visit. Agrees with discharge plan of care. Recommends treating with Pradipro and Flagyl for enteritis at this time. 10/01/18 23:32 Attempted to reassure patient that he is stable for discharge. Patient anxious because he does not have insurance does not have a primary doctor and he is concerned because he had vomiting yesterday and is worried about what he will eat. Patient has not had any vomiting since yesterday and has tolerated oral contrast in addition to oral fluids here without emesis. Patient with reducible umbilical hernia at this time. No concern for incarceration. Patient advised that a referral will be placed to our data recovery planner to evaluate for resources given patient's lack of insurance and the fact that he lives out of [facility] making it difficult to follow-up with her local [facility]. Patient also encouraged to follow-up with a general surgeon on outpatient basis for definitive management of his hernia. Patient was advised of incidental finding of enlarged prostate noted on CT scan. Patient encouraged to follow-up with a primary doctor to further evaluate this finding as well as to recheck his blood pressure. Patient is here with asymptomatic hypertension here today. Patient advised that he will likely need to have a change in the dose of his blood pressure medication and may possibly need additional medications to help get his blood pressure under better control. - Vital Signs Vital signs: Temp Pulse Resp BP Pulse Ox 99.2 F 74 18 203/100 H 100 10/01/18 20:07 10/01/18 20:07 10/01/18 20:07 10/01/18 20:07 10/01/18 20:07 - Laboratory Result Diagrams: 10/01/18 15:35 10/01/18 17:08 Laboratory results interpreted by me: 10/01/18 10/01/18 10/01/18 15:13 15:35 17:08 WBC 20.1 H Hgb 17.6 H Monocytes % (Manual) 2 L Abs Neuts (Manual) 13.9 H Abs Lymphs (Manual) 5.6 H Potassium 3.5 L Chloride 97 L Glucose 133 H Direct Bilirubin 0.9 H AST 79 H ALT 78 H Alkaline Phosphatase 151 H Urine Protein 100 H Urine Glucose (UA) 50 H Urine Bilirubin SMALL H Urine Urobilinogen 4.0 H 10/02/18 02:12 Labs- Entire Visit 10/01/18 10/01/18 10/01/18 15:13 15:35 15:35 WBC 20.1 H RBC 5.37 Hgb 17.6 H Hct 49.3 MCV 92 MCH 32.7 MCHC 35.7 RDW 13.1 Plt Count 318 Total Counted 100 Seg Neutrophils % Not Reportable Seg Neuts % (Manual) 69 Lymphocytes % Not Reportable Lymphocytes % (Manual) 28 Monocytes % Not Reportable Monocytes % (Manual) 2 L Eosinophils % Not Reportable Eosinophils % (Manual) 1 Basophils % Not Reportable Basophils % (Manual) 0 Absolute Neutrophils Not Reportable Abs Neuts (Manual) 13.9 H Absolute Lymphocytes Not Reportable Abs Lymphs (Manual) 5.6 H Absolute Monocytes Not Reportable Abs Monocytes (Manual) 0.4 Absolute Eosinophils Not Reportable Absolute Eos (Manual) 0.2 Absolute Basophils Not Reportable Abs Basophils (Manual) 0.0 Platelet Comment ADEQUATE Poikilocytosis SLIGHT Ovalocytes SLIGHT Sodium Cancelled Potassium Cancelled Chloride Cancelled Carbon Dioxide Cancelled Anion Gap Cancelled BUN Cancelled Creatinine Cancelled Est GFR ( Amer) Cancelled Est GFR (Non-Af Amer) Cancelled Glucose Cancelled Lactic Acid Calcium Cancelled Total Bilirubin Cancelled Direct Bilirubin Cancelled Neonat Total Bilirubin Cancelled Neonat Direct Bilirubin Cancelled Neonat Indirect Bili Cancelled AST Cancelled ALT Cancelled Alkaline Phosphatase Cancelled Total Protein Cancelled Albumin Cancelled Lipase Cancelled Urine Color TIM Urine Appearance SLIGHTLY-CLOUDY Urine pH 6.0 Ur Specific [place] 1.020 Urine Protein 100 H Urine Glucose (UA) 50 H Urine Ketones NEGATIVE Urine Blood NEGATIVE Urine Nitrite NEGATIVE Urine Bilirubin SMALL H Urine Urobilinogen 4.0 H Ur Leukocyte Esterase NEGATIVE Urine WBC (Auto) 4 Urine RBC (Auto) 0 U Hyaline Cast (Auto) 15 Urine Mucus (Auto) MANY Urine Ascorbic Acid NEGATIVE 10/01/18 10/01/18 10/01/18 15:35 17:08 17:08 WBC RBC Hgb Hct MCV MCH MCHC RDW Plt Count Total Counted Seg Neutrophils % Seg Neuts % (Manual) Lymphocytes % Lymphocytes % (Manual) Monocytes % Monocytes % (Manual) Eosinophils % Eosinophils % (Manual) Basophils % Basophils % (Manual) Absolute Neutrophils Abs Neuts (Manual) Absolute Lymphocytes Abs Lymphs (Manual) Absolute Monocytes Abs Monocytes (Manual) Absolute Eosinophils Absolute Eos (Manual) Absolute Basophils Abs Basophils (Manual) Platelet Comment Poikilocytosis Ovalocytes Sodium 139.3 Potassium 3.5 L Chloride 97 L Carbon Dioxide 30 Anion Gap 12 BUN 14 Creatinine 0.91 Est GFR ( Amer) > 60 Est GFR (Non-Af Amer) > 60 Glucose 133 H Lactic Acid Cancelled 1.1 Calcium 9.6 Total Bilirubin 1.3 Direct Bilirubin 0.9 H Neonat Total Bilirubin Not Reportable Neonat Direct Bilirubin Not Reportable Neonat Indirect Bili Not Reportable AST 79 H ALT 78 H Alkaline Phosphatase 151 H Total Protein 7.7 Albumin 4.4 Lipase 76.2 Urine Color Urine Appearance Urine pH Ur Specific [place] Urine Protein Urine Glucose (UA) Urine Ketones Urine Blood Urine Nitrite Urine Bilirubin Urine Urobilinogen Ur Leukocyte Esterase Urine WBC (Auto) Urine RBC (Auto) U Hyaline Cast (Auto) Urine Mucus (Auto) Urine Ascorbic Acid Reviewed labs from previous ER visit - Diagnostic Test Radiology reviewed: Reports reviewed - Reviewed report from previous ER visit Discharge - Discharge Clinical Impression: Prostate enlargement, Enteritis Hypertension Qualifiers: Hypertension type: unspecified Qualified Code(s): I10 - Essential (primary) hypertension Abdominal pain Qualifiers: Abdominal location: unspecified location Qualified Code(s): R10.9 - Unspecified abdominal pain Umbilical hernia Qualifiers: Obstruction and gangrene presence: without obstruction or gangrene Qualified Code(s): K42.9 - Umbilical hernia without obstruction or gangrene Condition: Stable Disposition: HOME, SELF-CARE Instructions: Abdominal Pain ([facility]), Antinausea Medication ([facility]), Ciprofloxacin ([facility]), High Blood Pressure, Requiring Treatment ([facility]), Metronidazole ([facility]), Oral Narcotic Medication ([facility]), Umbilical Hernia ([facility]) Additional Instructions: Return immediately for any new or worsening symptoms Followup with your primary care provider, call tomorrow to make a followup appointment You will need your blood pressure medication adjusted. You may need to have an increased dosage as well as possible additional medications to help better control your blood pressure. A primary doctor can write for these medications for you. You should see a general surgeon to have your hernia evaluated. Increase oral fluids and stay well-hydrated Pain medication such as narcotics can cause constipation. You should take an [id number] stool softener to help prevent constipation while you are on these medications. Your prostate was noted to be enlarged on the CAT scan today. Your primary doctor can order additional test to further evaluate this finding. Contact our data recovery planner Niraj Cazares at office number at [phone], she will be able to give you information on where to get established with a primary doctor Prescriptions: Ciprofloxacin HCl [Cipro 500 mg Tablet] 500 mg PO BID #20 tablet Losartan Potassium 50 mg PO DAILY #30 tablet Metronidazole [Flagyl 500 mg Tablet] 500 mg PO TID #30 tablet Oxycodone HCl/Acetaminophen [Percocet 5-325 mg Tablet] 1 tab PO ASDIR PRN #10 tablet PRN Reason: Promethazine HCl [Phenergan 25 mg Tablet] 25 mg PO Q6H PRN #10 tablet PRN Reason: Forms: Smoking Cessation Education Referrals: [facility] [Provider Group] - Follow up as needed [facility] [Provider Group] - Follow up as needed [facility] [Provider Group] - 10/04/18
[2018-10-01 17:35] LABS: ALANINE AMINOTRANSFERASE 78 U/L (21-72); ALBUMIN 4.4 g/dL (3.5-5.0); ALKALINE PHOSPHATASE 151 U/L (38-126); ANION GAP 12 (5-19); ASPARTATE AMINO TRANSFERASE 79 U/L (17-59); BILIRUBIN,DIRECT 0.9 mg/dL (0.0-0.4); BILIRUBIN,TOTAL 1.3 mg/dL (0.2-1.3); BLOOD UREA NITROGEN 14 mg/dL (7-20); CALCIUM 9.6 mg/dL (8.4-10.2); CARBON DIOXIDE 30 mmol/L (22-30); CHLORIDE 97 mmol/L (98-107); GLUCOSE 133 mg/dL (75-110); LIPASE 76.2 U/L (23-300); POTASSIUM 3.5 mmol/L (3.6-5.0); SODIUM 139.3 mmol/L (137-145); TOTAL PROTEIN 7.7 g/dL (6.3-8.2)
[2018-10-01] MEDS ORDERED: LOSARTAN POTASSIUM 50 MG TABLET PO ONE (17:59)
[2018-10-01 20:23] VITALS: BP 203/100
--- NOTE | 2018-10-01 20:29 | RADIOLOGY REPORT (SQ) ---
EXAM DESCRIPTION: US ABDOMEN LIMITED COMPLETED DATE/TME: 10/01/2018 17:42 CLINICAL HISTORY: 52 years, Male, abd pain, hx cholelithiasis COMPARISON: Correlation with recent abdominal x-ray performed earlier same day at 3:[address] abdomen and pelvis 09/22/2018 TECHNIQUE: Limited Grayscale and color Doppler ultrasound of the abdominal right upper quadrant. LIMITATIONS: Poor penetration and overlying bowel gas. FINDINGS: Pancreas: Partially visualized pancreatic body appears within normal limits. Limited visualization of the pancreatic head and tail. Liver: In the upper limits of normal in size measuring approximately 16.6 cm in length. Diffuse increase echogenicity consistent with hepatic steatosis. No focal lesion. Main portal vein: Patent with expected hepatopetal flow. Gallbladder: Gallstones identified. No gallbladder wall thickening. No pericholecystic fluid. Negative sonographic Valencia's sign was reported. Biliary duct: Common bile duct within normal limits in size measuring 2 mm. No intrahepatic bile duct dilatation. Aorta: Nonaneurysmal. Proximally measures 2.0 cm, mid abdominal aorta measures 1.6 cm, nonvisualization of the distal aorta due to overlying bowel gas. IVC: Visualized portion appears within normal limits. Right kidney: Measures 11.3 cm in length. No hydronephrosis. No renal lesion. IMPRESSION: 1. Cholelithiasis without sonographic findings of acute cholecystitis. 2. Hepatic steatosis. 3. Partially visualized pancreas. copyright 2010 [employer]- All Rights Reserved
--- NOTE | 2018-10-01 20:53 | RADIOLOGY REPORT (SQ) ---
EXAM DESCRIPTION: CT ABDOMEN PELVIS WITH IV CONTRAST COMPLETED DATE/TME: 10/01/2018 00:00 CLINICAL HISTORY: 52 years, Male, abd pain, n/v COMPARISON: 09/22/2018 CT TECHNIQUE: 408 Images stored on PACS. All CT scanners at this facility use dose modulation, iterative reconstruction, and/or weight based dosing when appropriate to reduce radiation dose to as low as reasonably achievable (ALARA). [facility]: Dose Right [facility]: CareDose [facility]: Dose Right [facility]: Teradose 4D [facility]: [place] LIMITATIONS: None. FINDINGS: The visualized lung bases are unremarkable. Osseous structures are grossly intact. Diffuse fatty infiltrative change to the liver. The spleen, adrenal glands, pancreas, kidneys are unremarkable. The gallbladder is present. Questionable gallstones. Anterior abdominal wall hernia/periumbilical hernia containing a knuckle of small bowel. No evidence for obstruction at this time. No free air or free fluid. Subjective urinary bladder wall thickening. Correlate with urinalysis. Normal appendix. There is a thick-walled loop of small bowel in the right upper quadrant/subhepatic space with surrounding inflammatory change. The loop is not dilated. The prostate is enlarged. Correlate with PSA levels.. IMPRESSION: Nondilated, thick-walled loop of small bowel in the right upper quadrant/subhepatic space. There is surrounding inflammatory change. Findings may reflect nonspecific enteritis. Correlate with any history of inflammatory bowel disease. Periumbilical hernia containing a knuckle of small bowel. No associated small bowel dilatation or inflammatory change to suggest incarceration. Fatty infiltrative change to the liver. Enlargement of the prostate. Subjective urinary bladder wall thickening. TECHNICAL DOCUMENTATION: Quality ID # [id number]: Final reports with documentation of one or more dose reduction techniques (e.g., Automated exposure control, adjustment of the mA and/or kV according to patient size, use of iterative reconstruction technique) copyright 2010 [employer]- All Rights Reserved
[2018-10-01] MEDS ORDERED: CIPROFLOXACIN HCL 500 MG TABLET PO ONE (23:31)
[2018-10-01] MEDS ORDERED: OXYCODONE-ACETAMINOPHEN 5-325 MG TABLET PO ONE (23:31)
[2018-10-01] MEDS ORDERED: METRONIDAZOLE 500 MG TABLET PO ONE (23:31)
== END 2018-10-02 00:01 | disposition home or self-care (01) ==
LOC: ER 13:06
DX: K52.9 Noninfective gastroenteritis and colitis, unspecified (principal); Q55.4 Other congenital malformations of vas deferens, epididymis, seminal vesicles and prostate; K42.9 Umbilical hernia without obstruction or gangrene; I10 Essential (primary) hypertension; R10.9 Unspecified abdominal pain; R21 Rash and other nonspecific skin eruption; F17.200 Nicotine dependence, unspecified, uncomplicated; E11.9 Type 2 diabetes mellitus without complications
CPT/HCPCS: 96376; 99284; 96361; 96374; 96375; 36415; 83690; 85025; 86592; 80053; 81001; 83605; 74019; 76705; 74177; J2270; J2405; J7030

== ENCOUNTER 2018-10-28 02:09 | Emergency (ER) | payer SELFPAY ==
[2018-10-28] MEDS ORDERED: ONDANSETRON HCL INJ/PF 4 MG/2 ML SDV IV ONE (02:45)
[2018-10-28] MEDS ORDERED: NORMAL SALINE 1000 ML 1,000 ML IV ONE (02:45)
[2018-10-28] MEDS ORDERED: HYDROMORPHONE HCL INJ/PF 2 MG/ML AMPULE IV ONE (02:45)
[2018-10-28 02:59] LABS: ABSOLUTE BASOPHILS # (AUTO) 0.1 10^3/uL (0.0-0.2); ABSOLUTE EOSINOPHILS # (AUTO) 0.2 10^3/uL (0.0-0.6); ABSOLUTE LYMPHOCYTES (AUTO) 3.7 10^3/uL (0.5-4.7); ABSOLUTE MONOCYTES (AUTO) 0.7 10^3/uL (0.1-1.4); ABSOLUTE NEUT (AUTO) 9.7 10^3/uL (1.7-8.2); BASOPHILS % (AUTO) 0.5 % (0-2); HEMATOCRIT 46.4 % (37.9-51.0); HEMOGLOBIN 16.4 g/dL (13.5-17.0); LYMPHOCYTES % (AUTO) 25.8 % (13-45); MEAN CORPUSCULAR HEMOGLOBIN 31.8 pg (27.0-33.4); MEAN CORPUSCULAR HGB CONC 35.3 g/dL (32.0-36.0); MEAN CORPUSCULAR VOLUME 90 fl (80-97); MONOCYTES % (AUTO) 5.1 % (3-13); PLATELET COUNT 356 10^3/uL (150-450); RED BLOOD COUNT 5.14 10^6/uL (4.35-5.55); RED CELL DISTRIBUTION WIDTH 12.8 % (11.5-14.0); SEGMENTED NEUTROPHILS % (AUTO) 67.6 % (42-78); TOTAL CELLS COUNTED % (AUTO) 100 %; WHITE BLOOD COUNT 14.3 10^3/uL (4.0-10.5)
--- NOTE | 2018-10-28 03:03 | ER Document Report ---
ED GI/ - General TRAVEL OUTSIDE OF THE [place] IN LAST 30 DAYS: No <ADITHYA GIFFORD - Last Filed: 10/28/18 07:48> <MORENO HUDDLESTON - Last Filed: 10/28/18 10:41> - General Chief Complaint: Abdominal Pain Stated Complaint: ABDOMINAL PAIN Time Seen by Provider: 10/28/18 02:38 Primary Care Provider: [facility] [Provider Group] - Follow up as needed Notes: Patient is a 53-year-old male with a past medical history of a known ventral hernia that comes emergency department for chief complaint of abdominal pain specifically around the hernia, 3 episodes of vomiting in the past day, and inability to eat for the past 2 days except for very small portions. He has had a bowel movement yesterday which was normal, he is still passing gas. He denies ever having abdominal surgery, he does smoke. He has been wearing an abdominal binder. He admits that almost 3 days ago he was trying to get a door back on and he is concerned the lifting caused his symptoms today. He states that he tried to press on the area but he could not get it back in. He denies fever or chills. Past medical history of hypertension, medicated. He smokes. (ADITHYA HAYS) - Related Data Allergies/Adverse Reactions: No Known Allergies Allergy (Verified 09/22/18 12:21) Past Medical History - General Information source: Patient - Social History Smoking Status: Current Every Day Smoker Smoking Education Provided: Yes - <3 min Frequency of alcohol use: None Drug Abuse: None Lives with: Spouse/Significant other Family History: Reviewed & Not Pertinent, Hypertension Patient has suicidal ideation: No Patient has homicidal ideation: No - Past Medical History Cardiac Medical History: Reports: Hx Hypertension Endocrine Medical History: Reports: Hx Diabetes Mellitus Type 2 Renal/ Medical History: Denies: Hx Peritoneal Dialysis <ADITHYA GIFFORD - Last Filed: 10/28/18 07:48> Review of Systems - Review of Systems Constitutional: No symptoms reported EENT: No symptoms reported Cardiovascular: No symptoms reported Respiratory: No symptoms reported Gastrointestinal: See HPI Genitourinary: No symptoms reported Male Genitourinary: No symptoms reported Musculoskeletal: No symptoms reported Skin: No symptoms reported Hematologic/Lymphatic: No symptoms reported Neurological/Psychological: No symptoms reported <ADITHYA GIFFORD - Last Filed: 10/28/18 07:48> Physical Exam <ADITHYA GIFFORD - Last Filed: 10/28/18 07:48> - Vital signs Vitals: Temp Pulse Resp BP Pulse Ox 98.3 F 140 H 22 H 168/129 H 98 10/28/18 02:27 10/28/18 02:27 10/28/18 02:27 10/28/18 02:27 10/28/18 02:27 - Notes Notes: GENERAL: Patient appears uncomfortable, however he is alert and conversational. No severe distress. HEAD: Normocephalic, atraumatic. EYES: Pupils equal, round, and reactive to light. Extraocular movements intact. ENT: Oral mucosa moist, tongue midline. Oropharynx unremarkable. Airway patent. Nares patent, no nasal septal hematoma, TM's intact. NECK: Full range of motion. Supple. Trachea midline. LUNGS: Clear to auscultation bilaterally, no wheezes, rales, or rhonchi. No respiratory distress. HEART: Regular rate and rhythm. No murmur ABDOMEN: Ventral hernia just above the umbilicus, this is tender and firm but not rigid, not erythematous. Remaining abdomen is unremarkable. GENITOURINARY: Deferred EXTREMITIES: Moves all 4 extremities spontaneously. No edema, normal radial and dorsalis pedis pulses bilaterally. No cyanosis. BACK: no cervical, thoracic, lumbar midline tenderness. No saddle anesthesia, normal distal neurovascular exam. NEUROLOGICAL: Alert and oriented x3. Normal speech. [cranial nerves II through XII grossly intact]. PSYCH: Normal affect, normal mood. SKIN: Warm, dry, normal turgor. No rashes or lesions noted. (ADITHYA GIFFORD) Course - Laboratory Result Diagrams: 10/28/18 02:40 10/28/18 03:15 <CARLOSSHIVANI PIKEAN - Last Filed: 10/28/18 07:48> - Laboratory Result Diagrams: 10/28/18 02:40 10/28/18 08:05 <MORENO HUDDLESTON - Last Filed: 10/28/18 10:41> - Re-evaluation Re-evalutation: Patient with firm tender area over the ventral abdomen just superior to the umbilicus, consistent with a hernia. Patient is tachycardic, he appears to be in pain but he is not in severe discomfort. 10/28/18 03:00 After Dilaudid and Zofran, I was able to reduce the hernia by placing patient in Trendelenburg and placing gentle pressure over the area. This did reduce without difficulty. Area did not reexpress. Labs pending, will reevaluate. Discussed with Dr. Sharp. CBC shows mild leukocytosis, elevated neutrophils, no bandemia. Chemistry hemolyzed and is pending. Lactic acid is not elevated. Patient reevaluated and the hernia is still reduced without any recurrence or current pain. Patient is hypertensive, however patient states his average home blood pressure reading is 190 and has been so for a long time. He does not have a headache or chest pain. He does have blood pressure medication he takes but he states it does not make a significant difference. Chemistry resulted, potassium is low at 2.8, checking magnesium, check an EKG. Magnesium is low at 1.4. Giving 40 mEq potassium IV, magnesium, given potassium p.o. as well. EKG showing QTC of 500, fascicular block. I discussed with Dr. Sharp. His recommendation is for potassium, magnesium, and recheck of EKG and chemistry. Discussed with patient, he states agreement with this plan. (ADITHYA GIFFORD) Report received from Adithya Gifford at 715, patient evaluated at bedside. Patient awake alert and oriented, afebrile vitals stable. Awaiting repeat BMP for rechecking his potassium. EKG was repeated, his QTC was reduced down to 472 this likely is due to having his potassium and magnesium replaced. Repeat potassium was 4.8. The patient that he does need to follow-up with outpatient surgery for hernia repair, discussed return to the ER if he is experiencing any fever, vomiting, his hernia being unable to reduce, etc. After performing a Medical Screening Examination, I estimate there is LOW risk for ACUTE APPENDICITIS, BOWEL OBSTRUCTION, ACUTE CHOLECYSTITIS, PERFORATED DIVERTICULITIS, INCARCERATED HERNIA, PANCREATITIS, TESTICULAR TORSION or PERFORATED ULCER, thus I consider the discharge disposition reasonable. Also, there is no evidence or peritonitis, sepsis, or toxicity. I have reevaluated this patient multiple times and no significant life threatening changes are noted. The patient and I have discussed the diagnosis and risks, and we agree with discharging home with close follow-up with the understanding that symptoms and presentations can change. We also discussed returning to the Emergency Department immediately if new or worsening symptoms occur. We have discussed the symptoms which are most concerning (e.g., bloody stool, fever, changing or worsening pain, intractable vomiting - standard verbal up date) that necessitate immediate return. 10/28/18 10:40 (MORENO HUDDLESTON) - Vital Signs Vital signs: Temp Pulse Resp BP Pulse Ox 98.3 F 140 H 18 180/113 H 99 10/28/18 09:08 10/28/18 02:27 10/28/18 09:08 10/28/18 09:01 10/28/18 09:08 - Laboratory Laboratory results interpreted by me: 10/28/18 10/28/18 10/28/18 02:40 03:15 03:15 WBC 14.3 H Absolute Neutrophils 9.7 H Potassium 2.8 L* Glucose 166 H Magnesium 1.4 L Direct Bilirubin 0.8 H AST 67 H Alkaline Phosphatase 150 H 10/28/18 08:05 WBC Absolute Neutrophils Potassium Glucose 116 H Magnesium Direct Bilirubin AST Alkaline Phosphatase Discharge <ADITHYA GIFFORD - Last Filed: 10/28/18 07:48> <MORENO HUDDLESTON - Last Filed: 10/28/18 10:41> - Discharge Clinical Impression: Umbilical hernia, Vomiting, Hypokalemia, Essential hypertension Condition: Stable Disposition: HOME, SELF-CARE Additional Instructions: The hernia was reduced. Continue to wear the abdominal binder. Follow up with the Surgical Clinic for management of the hernia (see referral, call for the appointment). Stop smoking. Smoking can cause an increase in the size of your hernia. Your blood pressure is still consistently elevated. Follow-up with the primary care referral that you already received for additional management of this. Return if you worsen including severe abdominal pain, vomiting, fever, or any other concerning or worsening symptoms. Referrals: [facility] [Provider Group] - Follow up as needed
[2018-10-28 03:42] LABS: ALANINE AMINOTRANSFERASE 66 U/L (21-72); ALBUMIN 3.9 g/dL (3.5-5.0); ALKALINE PHOSPHATASE 150 U/L (38-126); ANION GAP 14 (5-19); ASPARTATE AMINO TRANSFERASE 67 U/L (17-59); BILIRUBIN,DIRECT 0.8 mg/dL (0.0-0.4); BILIRUBIN,TOTAL 1.3 mg/dL (0.2-1.3); BLOOD UREA NITROGEN 10 mg/dL (7-20); CALCIUM 9.3 mg/dL (8.4-10.2); CARBON DIOXIDE 26 mmol/L (22-30); CHLORIDE 99 mmol/L (98-107); GLUCOSE 166 mg/dL (75-110); LIPASE 113.7 U/L (23-300); SODIUM 139.4 mmol/L (137-145); TOTAL PROTEIN 8.2 g/dL (6.3-8.2)
[2018-10-28 03:44] LABS: POTASSIUM 2.8 mmol/L (3.6-5.0)
[2018-10-28] MEDS ORDERED: FAMOTIDINE 20 MG TABLET PO ONE (03:49)
[2018-10-28] MEDS ORDERED: POTASSIUM CHLORIDE 10 MEQ CAPSULE.ER PO ONE (03:49)
[2018-10-28] MEDS: MAGNESIUM SULFATE/D5W 1 GM/100 ML RTUPB IV SCH ×2 (04:03→04:33)
[2018-10-28] MEDS: POTASSI CL 20 MEQ/50 ML RIDER 20 MEQ/50 ML RTUPB IV SCH ×2 (04:34→06:29)
[2018-10-28 08:36] LABS: ANION GAP 10 (5-19); BLOOD UREA NITROGEN 10 mg/dL (7-20); CALCIUM 9.3 mg/dL (8.4-10.2); CARBON DIOXIDE 27 mmol/L (22-30); CHLORIDE 101 mmol/L (98-107); GLUCOSE 116 mg/dL (75-110); SODIUM 138.2 mmol/L (137-145)
[2018-10-28 08:47] LABS: POTASSIUM 3.8 mmol/L (3.6-5.0)
[2018-10-28 09:13] VITALS: BP 180/113
--- NOTE | 2018-10-28 23:01 | EKG REPORT ---
SEVERITY:- ABNORMAL ECG - SINUS RHYTHM RIGHT BUNDLE BRANCH BLOCK T INVERSION CONSIDER ISCHEMIA : Confirmed by: Juana Velez 28-Oct-2018 23:01:06
--- NOTE | 2018-10-28 23:02 | EKG REPORT ---
SEVERITY:- ABNORMAL ECG - SINUS RHYTHM RBBB AND LPFB CONSIDER LEFT VENTRICULAR HYPERTROPHY : Confirmed by: Juana Velez 28-Oct-2018 23:01:25
== END 2018-10-28 09:16 | disposition home or self-care (01) ==
LOC: ER 02:09
DX: K42.9 Umbilical hernia without obstruction or gangrene (principal); R11.10 Vomiting, unspecified; E87.6 Hypokalemia; I10 Essential (primary) hypertension; F17.200 Nicotine dependence, unspecified, uncomplicated; E11.9 Type 2 diabetes mellitus without complications
CPT/HCPCS: 93005; 99284; 96361; 96375; 96365; 96366; 96367; 36415; 83605; 83690; 83735; 85025; 80048; 80053; 93010; J1170; J3475; J2405; J3480; J7030

== ENCOUNTER 2018-12-17 12:19 | Emergency (ER) | payer OTHER ==
--- NOTE | 2018-12-17 13:09 | ER Document Report ---
ED Medical Screen (RME) - General Chief Complaint: Abdominal Pain Stated Complaint: ABDOMINAL PAIN Time Seen by Provider: 12/17/18 13:06 Mode of Arrival: Ambulatory Information source: Patient Notes: Patient presents complaining of periumbilical abdominal pain for the past 2 weeks. Patient does have an umbilical hernia but denies any change in appearance. Patient denies any nausea vomiting or fever. I have greeted and performed a rapid initial assessment of this patient. A comprehensive ED assessment and evaluation of the patient, analysis of test results and completion of the medical decision making process will be conducted by additional ED providers. TRAVEL OUTSIDE OF THE [place] IN LAST 30 DAYS: No - Related Data Allergies/Adverse Reactions: No Known Allergies Allergy (Verified 12/17/18 12:21) Past Medical History - Social History Chew tobacco use (# tins/day): No Drug Abuse: None - Past Medical History Cardiac Medical History: Reports: Hx Hypertension Endocrine Medical History: Reports: Hx Diabetes Mellitus Type 2 Renal/ Medical History: Denies: Hx Peritoneal Dialysis Physical Exam - Vital signs Vitals: Temp Pulse Resp BP Pulse Ox 98.2 F 74 17 195/90 H 99 12/17/18 12:38 12/17/18 12:38 12/17/18 12:38 12/17/18 12:38 12/17/18 12:38 - Abdominal Tenderness: Tender - Periumbilical tenderness Course - Vital Signs Vital signs: Temp Pulse Resp BP Pulse Ox 98.2 F 74 17 195/90 H 99 12/17/18 12:38 12/17/18 12:38 12/17/18 12:38 12/17/18 12:38 12/17/18 12:38
[2018-12-17 13:48] LABS: ABSOLUTE BASOPHILS # (AUTO) 0.1 10^3/uL (0.0-0.2); ABSOLUTE EOSINOPHILS # (AUTO) 0.1 10^3/uL (0.0-0.6); ABSOLUTE LYMPHOCYTES (AUTO) 4.5 10^3/uL (0.5-4.7); ABSOLUTE MONOCYTES (AUTO) 0.7 10^3/uL (0.1-1.4); ABSOLUTE NEUT (AUTO) 5.6 10^3/uL (1.7-8.2); BASOPHILS % (AUTO) 1.3 % (0-2); EOSINOPHILS % (AUTO) 0.5 % (0-6); HEMATOCRIT 41.4 % (37.9-51.0); HEMOGLOBIN 14.4 g/dL (13.5-17.0); LYMPHOCYTES % (AUTO) 41.2 % (13-45); MEAN CORPUSCULAR HEMOGLOBIN 31.3 pg (27.0-33.4); MEAN CORPUSCULAR HGB CONC 34.7 g/dL (32.0-36.0); MEAN CORPUSCULAR VOLUME 90 fl (80-97); MONOCYTES % (AUTO) 6.1 % (3-13); PLATELET COUNT 355 10^3/uL (150-450); RED CELL DISTRIBUTION WIDTH 13.5 % (11.5-14.0); SEGMENTED NEUTROPHILS % (AUTO) 50.9 % (42-78); TOTAL CELLS COUNTED % (AUTO) 100 %
[2018-12-17 14:03] LABS: APPEARANCE,URINE CLEAR; BILIRUBIN,URINE NEGATIVE (NEGATIVE); COLOR,URINE YELLOW; GLUCOSE, URINE NEGATIVE (NEGATIVE); KETONES,URINE NEGATIVE (NEGATIVE); LEUKOCYTE ESTERASE,URINE NEGATIVE (NEGATIVE); NITRITE,URINE NEGATIVE (NEGATIVE); PROTEIN,URINE NEGATIVE (NEGATIVE); URINE SPECIFIC GRAVITY 1.013; UROBILINOGEN,URINE NEGATIVE mg/dL (<2.0)
[2018-12-17 14:14] LABS: ALANINE AMINOTRANSFERASE 85 U/L (21-72); ALBUMIN 4.4 g/dL (3.5-5.0); ALKALINE PHOSPHATASE 140 U/L (38-126); ANION GAP 12 (5-19); ASPARTATE AMINO TRANSFERASE 84 U/L (17-59); BILIRUBIN,DIRECT 0.6 mg/dL (0.0-0.4); BILIRUBIN,TOTAL 0.9 mg/dL (0.2-1.3); BLOOD UREA NITROGEN 10 mg/dL (7-20); CARBON DIOXIDE 29 mmol/L (22-30); CHLORIDE 99 mmol/L (98-107); GLUCOSE 124 mg/dL (75-110); LIPASE 79.5 U/L (23-300); POTASSIUM 3.5 mmol/L (3.6-5.0); SODIUM 140.2 mmol/L (137-145); TOTAL PROTEIN 8.4 g/dL (6.3-8.2)
--- NOTE | 2018-12-17 16:04 | ER Document Report ---
ED General - General Chief Complaint: Abdominal Pain Stated Complaint: ABDOMINAL PAIN Time Seen by Provider: 12/17/18 13:06 Mode of Arrival: Ambulatory TRAVEL OUTSIDE OF THE [place] IN LAST 30 DAYS: No - HPI Notes: Patient is a 53-year-old male with a known history of an umbilical hernia who presents to the emergency department for evaluation of abdominal pain. He states to me that it is mostly "discomfort." He states seems to been worse since his last visit here. He has lost weight. He has chronic constipation, states he has a bowel movement every 3 to 4 days, this has not changed. He denies any nausea or vomiting. His appetite is actually improved per the patient. No urinary symptoms. He has been wearing an abdominal binder to help with his hernia, he states that it seems to have helped, but he still having pain. He admits to taking 6-8 Aleve tablets daily. No melena or hematochezia. - Related Data Allergies/Adverse Reactions: No Known Allergies Allergy (Verified 12/17/18 12:21) Past Medical History - General Information source: Patient - Social History Smoking Status: Current Every Day Smoker Chew tobacco use (# tins/day): No Drug Abuse: None Family History: Reviewed & Not Pertinent, Hypertension Patient has suicidal ideation: No Patient has homicidal ideation: No - Past Medical History Cardiac Medical History: Reports: Hx Hypertension Endocrine Medical History: Reports: Hx Diabetes Mellitus Type 2 Renal/ Medical History: Denies: Hx Peritoneal Dialysis Review of Systems - Review of Systems Constitutional: No symptoms reported EENT: No symptoms reported Cardiovascular: No symptoms reported Respiratory: No symptoms reported Gastrointestinal: See HPI Male Genitourinary: No symptoms reported Musculoskeletal: No symptoms reported Skin: No symptoms reported Neurological/Psychological: No symptoms reported Physical Exam - Vital signs Vitals: Temp Pulse Resp BP Pulse Ox 98.2 F 74 17 195/90 H 99 12/17/18 12:38 12/17/18 12:38 12/17/18 12:38 12/17/18 12:38 12/17/18 12:38 - Notes Notes: Vital signs reviewed, please refer to chart. Head is normocephalic, atraumatic. Pupils equal round, reactive to light. Neck is supple without meningismus. Heart is regular rate and rhythm. Lungs are clear to auscultation bilaterally. Abdomen is soft, generalized tenderness without rebound or guarding, normoactive bowel sounds throughout. He does have a small umbilical hernia which is easily reducible. extremities without cyanosis, clubbing. Posterior calves are nontender. Peripheral pulses are equal. Skin is warm and dry. Patient is awake, alert, neurological exam is nonfocal. Course - Re-evaluation Re-evalutation: 12/17/18 16:01 Patient presents emergency department for evaluation. I did review his old ultrasound. It really revealed cholelithiasis without signs of cholecystitis or obstruction. He certainly does not have any findings of cholecystitis on exam today. Laboratory investigations are unremarkable. I did go ahead and cancel abdominal ultrasound after conversation with patient. I strongly advised him to stop taking any [id number] medications besides how they are prescribed. I told him to add Tylenol to his regimen, take the Aleve with food. He voiced understanding with this. He is to follow-up with his primary care physician. He is to return to the emergency department with worsening or new concerning symptoms of any sort. - Vital Signs Vital signs: Temp Pulse Resp BP Pulse Ox 98.2 F 74 17 195/90 H 99 12/17/18 12:38 12/17/18 12:38 12/17/18 12:38 12/17/18 12:38 12/17/18 12:38 - Laboratory Result Diagrams: 12/17/18 13:37 12/17/18 13:37 Laboratory results interpreted by me: 12/17/18 12/17/18 13:37 13:37 WBC 11.0 H Potassium 3.5 L Glucose 124 H Direct Bilirubin 0.6 H AST 84 H ALT 85 H Alkaline Phosphatase 140 H Total Protein 8.4 H Discharge - Discharge Clinical Impression: Umbilical hernia without obstruction and without gangrene Abdominal pain Qualifiers: Abdominal location: generalized Qualified Code(s): R10.84 - Generalized abdom inal pain Condition: Stable Disposition: HOME, SELF-CARE Instructions: Abdominal Pain ([facility]), Umbilical Hernia ([facility]) Additional Instructions: You can take both Aleve and Tylenol for pain. Take the Aleve only as directed. You can take 2 tablets, twice a day, with food. You can take Tylenol in ad dition to Aleve. By extra strength 500 mg tablets. You can take 2 of those every 8 hours. Follow-up with your primary care physician. Return to the emergency department with worsening or new concerning symptoms.
[2018-12-17 16:21] VITALS: BP 195/92
== END 2018-12-17 16:20 | disposition home or self-care (01) ==
LOC: ER 12:19
DX: K42.9 Umbilical hernia without obstruction or gangrene (principal); R10.84 Generalized abdominal pain; I10 Essential (primary) hypertension; E11.9 Type 2 diabetes mellitus without complications; F17.200 Nicotine dependence, unspecified, uncomplicated
CPT/HCPCS: 36415; 80053; 81001; 83690; 83735; 85025; 99284

== ENCOUNTER 2019-02-24 10:57 | Emergency (ER) | payer OTHER ==
--- NOTE | 2019-02-24 11:35 | ER Document Report ---
ED Medical Screen (RME) - General Chief Complaint: Abdominal Pain Stated Complaint: ABDOMINAL PAIN Time Seen by Provider: 02/24/19 11:19 TRAVEL OUTSIDE OF THE [place] IN LAST 30 DAYS: No - HPI Notes: 02/24/19 11:33 Patient is a 53-year-old male with a history of an umbilical hernia who presents complaining of continued pain to his left mid abdomen that is been an ongoing issue. Patient states that he also noticed some discoloration to the skin of his left abdomen and wanted that evaluated. Patient has not seen a specialist for this issue. He has been wearing his abdominal binder. He is able to eat and drink without difficulties. He is urinating normally. Patient states that he does have issues with constipation and was only able to get out a few small pieces today. Denies HAIRSTON, fever, neck pain, URI, CP, SOB, dysuria, back pain, or rash. I have treated and performed a rapid initial assessment of this patient. A comprehensive ED assessment and evaluation of the patient, analysis of test results and completion of medical decision making process will be conducted by additional ED providers. PHYSICAL EXAMINATION: GENERAL: Well-appearing, well-nourished and in no acute distress. A&Ox4. Answers questions appropriately. LUNGS: Breath sounds clear to auscultation bilaterally and equal. No wheezes rales or rhonchi. HEART: Regular rate and rhythm without murmurs, rubs, gallops. ABDOMEN: Soft, nondistended abdomen. No guarding, no rebound. Normal bowel sounds present. No CVA tenderness bilaterally. + mild umbilical tenderness with a small reducible umbilical hernia noted (cannot elicit thorough abd exam w/o bed, however). - Related Data Allergies/Adverse Reactions: No Known Allergies Allergy (Verified 02/24/19 10:58) Past Medical History - Past Medical History Cardiac Medical History: Reports: Hx Hypertension Endocrine Medical History: Reports: Hx Diabetes Mellitus Type 2 Renal/ Medical History: Denies: Hx Peritoneal Dialysis Physical Exam - Vital signs Vitals: Temp Pulse Resp BP Pulse Ox 98.7 F 86 18 192/88 H 98 02/24/19 11:02 02/24/19 11:02 02/24/19 11:02 02/24/19 11:02 02/24/19 11:02 Course - Vital Signs Vital signs: Temp Pulse Resp BP Pulse Ox 98.7 F 86 18 192/88 H 98 02/24/19 11:02 02/24/19 11:02 02/24/19 11:02 02/24/19 11:02 02/24/19 11:02
[2019-02-24 12:03] LABS: ABSOLUTE BASOPHILS # (AUTO) 0.1 10^3/uL (0.0-0.2); ABSOLUTE EOSINOPHILS # (AUTO) 0.1 10^3/uL (0.0-0.6); ABSOLUTE LYMPHOCYTES (AUTO) 4.8 10^3/uL (0.5-4.7); ABSOLUTE MONOCYTES (AUTO) 0.7 10^3/uL (0.1-1.4); ABSOLUTE NEUT (AUTO) 5.6 10^3/uL (1.7-8.2); EOSINOPHILS % (AUTO) 0.9 % (0-6); HEMATOCRIT 41.7 % (37.9-51.0); HEMOGLOBIN 14.2 g/dL (13.5-17.0); LYMPHOCYTES % (AUTO) 42.3 % (13-45); MEAN CORPUSCULAR HEMOGLOBIN 31.7 pg (27.0-33.4); MEAN CORPUSCULAR VOLUME 93 fl (80-97); MONOCYTES % (AUTO) 6.2 % (3-13); PLATELET COUNT 354 10^3/uL (150-450); RED BLOOD COUNT 4.48 10^6/uL (4.35-5.55); RED CELL DISTRIBUTION WIDTH 13.6 % (11.5-14.0); SEGMENTED NEUTROPHILS % (AUTO) 49.6 % (42-78); TOTAL CELLS COUNTED % (AUTO) 100 %; WHITE BLOOD COUNT 11.4 10^3/uL (4.0-10.5)
[2019-02-24 12:21] LABS: ALANINE AMINOTRANSFERASE 83 U/L (21-72); ALBUMIN 4.4 g/dL (3.5-5.0); ALKALINE PHOSPHATASE 137 U/L (38-126); ANION GAP 11 (5-19); ASPARTATE AMINO TRANSFERASE 94 U/L (17-59); BILIRUBIN,DIRECT 0.6 mg/dL (0.0-0.4); BLOOD UREA NITROGEN 11 mg/dL (7-20); CALCIUM 9.2 mg/dL (8.4-10.2); CARBON DIOXIDE 27 mmol/L (22-30); CHLORIDE 102 mmol/L (98-107); GLUCOSE 119 mg/dL (75-110); POTASSIUM 3.4 mmol/L (3.6-5.0); SODIUM 139.6 mmol/L (137-145); TOTAL PROTEIN 8.3 g/dL (6.3-8.2)
[2019-02-24 12:36] LABS: APPEARANCE,URINE CLEAR; BILIRUBIN,URINE NEGATIVE (NEGATIVE); COLOR,URINE YELLOW; GLUCOSE, URINE NEGATIVE (NEGATIVE); KETONES,URINE NEGATIVE (NEGATIVE); LEUKOCYTE ESTERASE,URINE NEGATIVE (NEGATIVE); NITRITE,URINE NEGATIVE (NEGATIVE); PROTEIN,URINE NEGATIVE (NEGATIVE); URINE SPECIFIC GRAVITY 1.013
--- NOTE | 2019-02-24 12:49 | ER Document Report ---
Entered by CHAUNCEY ANDUJAR SCRIBE 02/24/19 1214 Acting as scribe for:DEVIN BRADY MD ED General - General Chief Complaint: Abdominal Pain Stated Complaint: ABDOMINAL PAIN Time Seen by Provider: 02/24/19 11:19 Notes: Patient is a 53-year-old male with history of umbilical hernia presenting to the emergency department complaining of abdominal pain. Patient states that he was diagnosed the beginning of the year with a local hernia. Patient has been in the emergency department several times the past 2 months for the same thing, patient states it has been bothering him for 2 months. Patient states that it is constant, is very discomforting, patient also states he has noticed discoloration. Patient states that he is currently taking losartan, hydralazine, amlodipine, and aspirin. Patient denies having any vomiting. TRAVEL OUTSIDE OF THE [place] IN LAST 30 DAYS: No - Related Data Allergies/Adverse Reactions: No Known Allergies Allergy (Verified 02/24/19 10:58) Past Medical History - General Information source: Patient - Social History Smoking Status: Current Every Day Smoker Cigarette use (# per day): Yes Chew tobacco use (# tins/day): No Frequency of alcohol use: Occasional Drug Abuse: None Family History: Reviewed & Not Pertinent, Hypertension Patient has suicidal ideation: No Patient has homicidal ideation: No - Past Medical History Cardiac Medical History: Reports: Hx Hypertension Endocrine Medical History: Reports: Hx Diabetes Mellitus Type 2 Renal/ Medical History: Denies: Hx Peritoneal Dialysis Review of Systems - Review of Systems Constitutional: No symptoms reported EENT: No symptoms reported Cardiovascular: No symptoms reported Respiratory: No symptoms reported Gastrointestinal: No symptoms reported Genitourinary: No symptoms reported Male Genitourinary: No symptoms reported Musculoskeletal: No symptoms reported Skin: No symptoms reported Hematologic/Lymphatic: No symptoms reported Neurological/Psychological: No symptoms reported -: Yes All other systems reviewed and negative Physical Exam - Vital signs Vitals: Temp Pulse Resp BP Pulse Ox 98.7 F 86 18 192/88 H 98 02/24/19 11:02 02/24/19 11:02 02/24/19 11:02 02/24/19 11:02 02/24/19 11:02 - Notes Notes: Physical Exam: General: Alert, appears well. HEENT: Normocephalic. Atraumatic. PERRL. Extraocular movements intact. Oropharynx clear. Neck: Supple. Non-tender. Respiratory: No respiratory distress. Clear and equal breath sounds bilaterally. Cardiovascular: Regular rate and rhythm. Abdominal: Small umbilical hernia. Has a binder wrapping around the abdomen to support hernia. Discoloration from the binder. Stabbing coto at the top of the binder upon taking it off. Normal Bowel Sounds. Back: Non-tender. No deformity or step off. Extremities: Moves all four extremities. Upper extremities: Normal inspection. Normal ROM. Lower extremities: Normal inspection. No edema. Normal ROM. Neurological: Normal cognition. AAOx4. Normal speech. Psychological: Normal affect. Normal Mood. Skin: Warm. Dry. Normal color. Course - Vital Signs Vital signs: Temp Pulse Resp BP Pulse Ox 98.7 F 86 18 192/88 H 98 02/24/19 11:02 02/24/19 11:02 02/24/19 11:02 02/24/19 11:02 02/24/19 11:02 - Laboratory Result Diagrams: 02/24/19 11:50 02/24/19 11:50 Laboratory results interpreted by me: 02/24/19 02/24/19 02/24/19 11:50 11:50 12:07 WBC 11.4 H Absolute Lymphocytes 4.8 H Potassium 3.4 L Glucose 119 H Direct Bilirubin 0.6 H AST 94 H ALT 83 H Alkaline Phosphatase 137 H Total Protein 8.3 H Urine Urobilinogen 4.0 H - Diagnostic Test Radiology reviewed: Image reviewed, Reports reviewed - Nonspecific bowel gas pattern with no evidence for obstruction. Discharge - Discharge Clinical Impression: Umbilical hernia Qualifiers: Obstruction and gangrene presence: without obstruction or gangrene Qualified Code(s): K42.9 - Umbilical hernia without obstruction or gangrene Condition: Stable Disposition: HOME, SELF-CARE Additional Instructions: Umbilical Hernia There is a hernia in the belly-button area, called an umbilical hernia. There's a weak spot in the abdominal wall where the umbilical cord was attached. Sometimes this weak spot opens up, and bowel slips out of the abdominal cavity, creating a bulge under the skin at the naval. In infants, a small umbilical hernia may seal off by itself. Adults usually need surgery to repair the hernia. It's important that you follow up as recommended. For now, avoid straining, heavy lifting, and vigorous exercise. If the hernia has just appeared and the naval area is painful, apply ice packs to reduce swelling. Complications occur if bowel gets tightly stuck in the hernia. You should come back immediately if the area becomes increasingly painful, swollen, or discolored, or if you develop abdominal pain and vomiting. You have an umbilical hernia that will only get better if it is surgically repaired. Your blood pressure was elevated today. Be sure you do not miss any of your doses of your blood pressure medication. Follow-up with [place] [facility] to discuss options for getting your umbilical hernia repaired. RETURN TO THE EMERGENCY ROOM IF ANY NEW OR WORSENING SYMPTOMS. Referrals: [facility] [Provider Group] - Follow up in 3-5 days (Call to schedule an appointment in the next week.) Scribe Attestation: 02/24/19 13:15 I personally performed the services described in the documentation, reviewed and edited the documentation which was dictated to the scribe in my presence, and it accurately records my words and actions. I personally performed the services described in the documentation, reviewed and edited the documentation which was dictated to the scribe in my presence, and it accurately records my words and actions.
--- NOTE | 2019-02-24 12:57 | RADIOLOGY REPORT (SQ) ---
EXAM DESCRIPTION: KUB/ABDOMEN (SINGLE VIEW) COMPLETED DATE/TIME: 02/24/2019 12:29 pm REASON FOR STUDY: abd pain COMPARISON: None. NUMBER OF VIEWS: One view. TECHNIQUE: Supine radiographic image of the abdomen acquired. LIMITATIONS: None. FINDINGS: BOWEL GAS PATTERN: Scattered non-dilated small bowel loops. No obstructive pattern. CALCIFICATIONS: No suspicious calcifications. SOFT TISSUES: No gross mass or suggestion of organomegaly. HARDWARE: None in the abdomen.. BONES: No acute fracture. No worrisome bone lesions. OTHER: No other significant finding. IMPRESSION: NON-SPECIFIC BOWEL GAS PATTERN WITHOUT EVIDENCE FOR OBSTRUCTION. TECHNICAL DOCUMENTATION: JOB ID: [id number] [employer]- All Rights Reserved Reading location - IP/workstation name: [email or web address]
[2019-02-24 13:35] VITALS: BP 175/95
== END 2019-02-24 13:34 | disposition home or self-care (01) ==
LOC: ER 10:57
DX: K42.9 Umbilical hernia without obstruction or gangrene (principal); R10.9 Unspecified abdominal pain; Z79.899 Other long term (current) drug therapy; F17.210 Nicotine dependence, cigarettes, uncomplicated; I10 Essential (primary) hypertension; E11.9 Type 2 diabetes mellitus without complications
CPT/HCPCS: 36415; 74018; 80053; 81001; 85025; 99284

== ENCOUNTER 2019-10-16 12:37 | Emergency (ER) | payer OTHER ==
[2019-10-16] MEDS ORDERED: IBUPROFEN 800 MG TABLET PO ONE (13:02)
--- NOTE | 2019-10-16 13:05 | ER Document Report ---
ED Medical Screen (RME) - General Chief Complaint: Abdominal Pain Stated Complaint: STOMACH PAIN/BACK PAIN Time Seen by Provider: 10/16/19 12:51 Mode of Arrival: Wheelchair Information source: Patient Notes: This 54-year-old male with history of umbilical hernia, retinal detachment hypertension presents emergency department with complaints of umbilical hernia for over a year that has been hurting him. Has an abdominal brace on. Reports that at times his hernia will become hard and he has to reduce it. Sometimes it is difficult to reproduce and he hears noises. Also complains of right-sided flank pain. Denies fever vomiting diarrhea. Denies difficulty voiding. Reports he has to take stool softener for bowel movements. Right flank tender to palpate. Abdominal area tender to palpate brace on. I have greeted and performed a rapid initial assessment of this patient. A comprehensive ED assessment and evaluation of the patient, analysis of test results and completion of the medical decision making process will be conducted by additional ED providers. TRAVEL OUTSIDE OF THE [place] IN LAST 30 DAYS: No - Related Data Allergies/Adverse Reactions: No Known Allergies Allergy (Verified 10/16/19 12:50) Past Medical History - Social History Chew tobacco use (# tins/day): No Frequency of alcohol use: None Drug Abuse: None - Past Medical History Cardiac Medical History: Reports: Hx Hypertension Endocrine Medical History: Reports: Hx Diabetes Mellitus Type 2 Renal/ Medical History: Denies: Hx Peritoneal Dialysis Physical Exam - Vital signs Vitals: Temp Pulse Resp BP Pulse Ox 98.1 F 85 18 185/75 H 99 10/16/19 12:43 10/16/19 12:43 10/16/19 12:43 10/16/19 12:43 10/16/19 12:43 Course - Vital Signs Vital signs: Temp Pulse Resp BP Pulse Ox 98.1 F 85 18 185/75 H 99 10/16/19 12:43 10/16/19 12:43 10/16/19 12:43 10/16/19 12:43 10/16/19 12:43
[2019-10-16 13:16] LABS: APPEARANCE,URINE CLEAR; BILIRUBIN,URINE NEGATIVE (NEGATIVE); COLOR,URINE YELLOW; GLUCOSE, URINE NEGATIVE (NEGATIVE); KETONES,URINE NEGATIVE (NEGATIVE); PROTEIN,URINE NEGATIVE (NEGATIVE); URINE SPECIFIC GRAVITY 1.011
[2019-10-16 13:30] LABS: ABSOLUTE BASOPHILS # (AUTO) 0.1 10^3/uL (0.0-0.2); ABSOLUTE EOSINOPHILS # (AUTO) 0.1 10^3/uL (0.0-0.6); ABSOLUTE MONOCYTES (AUTO) 0.7 10^3/uL (0.1-1.4); ABSOLUTE NEUT (AUTO) 5.6 10^3/uL (1.7-8.2); BASOPHILS % (AUTO) 1.4 % (0-2); EOSINOPHILS % (AUTO) 1.2 % (0-6); HEMATOCRIT 44.1 % (37.9-51.0); HEMOGLOBIN 15.4 g/dL (13.5-17.0); LYMPHOCYTES % (AUTO) 37.8 % (13-45); MEAN CORPUSCULAR HEMOGLOBIN 32.6 pg (27.0-33.4); MEAN CORPUSCULAR HGB CONC 34.8 g/dL (32.0-36.0); MEAN CORPUSCULAR VOLUME 94 fl (80-97); PLATELET COUNT 306 10^3/uL (150-450); RED BLOOD COUNT 4.72 10^6/uL (4.35-5.55); RED CELL DISTRIBUTION WIDTH 13.4 % (11.5-14.0); SEGMENTED NEUTROPHILS % (AUTO) 52.6 % (42-78); TOTAL CELLS COUNTED % (AUTO) 100 %; WHITE BLOOD COUNT 10.7 10^3/uL (4.0-10.5)
[2019-10-16 13:55] LABS: ALBUMIN 4.7 g/dL (3.5-5.0); ALKALINE PHOSPHATASE 160 U/L (38-126); ANION GAP 12 (5-19); ASPARTATE AMINO TRANSFERASE 104 U/L (17-59); BILIRUBIN,DIRECT 0.8 mg/dL (0.0-0.4); BILIRUBIN,TOTAL 1.2 mg/dL (0.2-1.3); BLOOD UREA NITROGEN 14 mg/dL (7-20); CALCIUM 9.9 mg/dL (8.4-10.2); CARBON DIOXIDE 25 mmol/L (22-30); CHLORIDE 102 mmol/L (98-107); GLUCOSE 138 mg/dL (75-110); TOTAL PROTEIN 9.3 g/dL (6.3-8.2)
--- NOTE | 2019-10-16 14:13 | RADIOLOGY REPORT (SQ) ---
EXAM DESCRIPTION: U/S RETROPERITON (RENAL/AORTA) COMPLETED DATE/TIME: 10/16/2019 1:43 pm REASON FOR STUDY: right flank pain COMPARISON: None. TECHNIQUE: Dynamic and static grayscale images acquired of the kidneys and bladder and recorded on P ACS. Additional selected color Doppler and spectral images recorded. LIMITATIONS: None. FINDINGS: RIGHT KIDNEY: Normal size. Normal echogenicity. No solid or suspicious masses. No hydronep hrosis. No calcifications. LEFT KIDNEY: Normal size. Normal echogenicity. No solid or suspicious masses. No hydronephrosis. No calcifications. BLADDER: No masses. OTHER FINDINGS: No other significant finding. IMPRESSION: NORMAL RENAL AND BLADDER ULTRASOUND. TECHNICAL DOCUMENTATION: JOB ID: [id number] 2010 [employer]- All Rights Reserved Reading location - IP/workstation name: [email or web address]
--- NOTE | 2019-10-16 14:15 | RADIOLOGY REPORT (SQ) ---
EXAM DESCRIPTION: U/S ABDOMEN LTD W/DOPPLER COMPLETED DATE/TIME: 10/16/2019 1:43 pm REASON FOR STUDY: umbilical hernia COMPARISON: CT scan 10/01/2018 TECHNIQUE: Dynamic and static grayscale images acquired of the localized site of clinical concern an d recorded on PACS. Additional selected color Doppler and spectral images recorded. SITE OF CONCERN: Periumbilical LIMITATIONS: None. FINDINGS: SKIN AND SUBCUTANEOUS TISSUES: Periumbilical hernia contains nonobstructed bowel. Measure s 3.8 x 1.8 x 3.1 cm DEEP SOFT TISSUES/MUSCLES: No masses. No fluid collections. No edema. VASCULAR: No increased or decreased vascularity. No occlusions. OTHER: No other significant finding. IMPRESSION: Periumbilical hernia contains nonobstructed bowel. TECHNICAL DOCUMENTATION: JOB ID: [id number] 2010 [employer]- All Rights Reserved Reading location - IP/workstation name: [email or web address]
[2019-10-16] MEDS ORDERED: KETOROLAC TROMETHAMINE 60 MG/2 ML SDV IM ONE (14:41)
--- NOTE | 2019-10-16 14:45 | ER Document Report ---
ED General - General Chief Complaint: Abdominal Pain Stated Complaint: STOMACH PAIN/BACK PAIN Time Seen by Provider: 10/16/19 12:51 Mode of Arrival: Wheelchair TRAVEL OUTSIDE OF THE [place] IN LAST 30 DAYS: No - HPI Notes: Patient is a 54-year-old male with a history of high blood pressure, chronic abdominal/umbilical hernia presents complaining of having right low back pain that is been present for the past 1 to 2 months. Patient states that the pain does not radiate. He is able to eat and drink without difficulty. He is urinating normally and having normal bowel movements. Denies drug allergies. He has not scheduled appointment with a surgeon for his hernia. He has not addressed this issue with his family doctor. No history of spinal abscess, diabetes, IV drug abuse. Denies any headache, fever, neck pain, URI, sore throat, chest pain, palpitations, syncope, cough, shortness of breath, wheeze, dyspnea, nausea/vomiting/diarrhea, urinary retention, dysuria, hematuria, loss of control of bowel or bladder, numbness/tingling, saddle anesthesia, muscle paralysis/weakness, or rash. - Related Data Allergies/Adverse Reactions: No Known Allergies Allergy (Verified 10/16/19 12:50) Past Medical History - General Information source: Patient - Social History Smoking Status: Never Smoker Chew tobacco use (# tins/day): No Frequency of alcohol use: None Drug Abuse: None Family History: Reviewed & Not Pertinent, Hypertension Patient has suicidal ideation: No Patient has homicidal ideation: No - Past Medical History Cardiac Medical History: Reports: Hx Hypertension Endocrine Medical History: Reports: Hx Diabetes Mellitus Type 2 Renal/ Medical History: Denies: Hx Peritoneal Dialysis Review of Systems - Review of Systems -: Yes All other systems reviewed and negative Physical Exam - Vital signs Vitals: Temp Pulse Resp BP Pulse Ox 98.1 F 85 18 185/75 H 99 10/16/19 12:43 10/16/19 12:43 10/16/19 12:43 10/16/19 12:43 10/16/19 12:43 - Notes Notes: PHYSICAL EXAMINATION: GENERAL: Well-appearing, well-nourished and in no acute distress. LUNGS: Breath sounds clear to auscultation bilaterally and equal. No wheezes rales or rhonchi. HEART: Regular rate and rhythm without murmurs, rubs, gallops. ABDOMEN: Soft, nontender, nondistended abdomen. No guarding, no rebound. Normal bowel sounds present. No CVA tenderness bilaterally. No pulsatile mass. Reducible hernia noted. Musculoskeletal: LE's b/l: FROM to passive/active. Strength 5+/5. No deficits noted. No bony tenderness of extremities. Back: FROM to passive/active. Strength 5+/5. No vertebral point tenderness, stepoffs, or deformities. No other bony tenderness, erythema, swelling, or ecchymosis. SLR negative b/l. + reproducible mild tenderness to the L- paraspinal mm Rt. Mild spasming. No SI jt tenderness. No foot drop Extremities: No cyanosis, clubbing, or edema b/l. Peripheral pulses 2+. Capillary refill less than 2 seconds. NEUROLOGICAL: Normal speech, antalgic gait. Normal sensory, motor exams. Reflexes 2+ b/l. PSYCH: Normal mood, normal affect. SKIN: Warm, Dry, normal turgor, no rashes or lesions noted. Course - Re-evaluation Re-evalutation: 10/16/19 14:43 Patient is an afebrile, well-hydrated, 54-year-old male who presents to the ED with Rt low back pain. Vitals are acceptable. PE is otherwise unremarkable for any focal neurological deficits. US's unremarkable for any acute pathology. Patient was given Toradol. He has no significant tachycardia, tachypnea, or hypoxia. He is nontoxic-appearing and is tolerating p.o. without difficulties. There are no signs of infection. No other red flag symptoms noted. No other labs or imaging warranted at this time based on H&P. Low suspicion for any meningitis, fracture, expanding/ruptured AAA, cauda equina syndrome, epidural mass lesion/abscess, herniated disc causing severe spinal stenosis, or other systemic infection at this time. Patient is aware that his condition can change from initial presentation and that he needs monitor symptoms closely for any acute changes. I will send him home with a prescription for robaxin and motrin (take with food/monitor BP). Conservative measures otherwise for symptoms. Recheck with your PCM in 3-5 days. Consider consult with orthopedic/physical therapy. Return to the ED with any worsening/concerning symptoms otherwise as reviewed discharge. Patient is in agreement. - Vital Signs Vital signs: Temp Pulse Resp BP Pulse Ox 98.1 F 85 18 185/75 H 99 10/16/19 12:43 10/16/19 12:43 10/16/19 12:43 10/16/19 12:43 10/16/19 12:43 - Laboratory Result Diagrams: 10/16/19 13:14 10/16/19 13:14 Laboratory results interpreted by me: 10/16/19 10/16/19 10/16/19 12:51 13:14 13:14 WBC 10.7 H Glucose 138 H Direct Bilirubin 0.8 H AST 104 H ALT 103 H Alkaline Phosphatase 160 H Total Protein 9.3 H Urine Urobilinogen 2.0 H Discharge - Discharge Clinical Impression: Right low back pain Qualifiers: Chronicity: acute Sciatica presence: without sciatica Qualified Code(s): M54.5 - Low back pain Condition: Stable Disposition: HOME, SELF-CARE Instructions: Stretching Exercises for the Back ([facility]), Low Back Pain ([facility]), Muscle Relaxers ([facility]) Additional Instructions: Rest, Ice Tylenol/ibuprofen as needed Light stretches daily Strength exercises as able Moist heat and massage may help F/u with your PCP in 3-5 days for a recheck Consider consult(s) with Orthopedics/physical therapy for ongoing/worsening symptoms Return to the ED with any worsening symptoms and/or development of fever, headache, chest pain, palpitations, syncope, shortness of breath, trouble breathing, abdominal pain, n/v/d, blood in stool/urine, loss of control of bowel/bladder, urinary retention, muscle weakness/paralysis, saddle anesthesia, numbness/tingling, or other worsening symptoms that are concerning to you. Prescriptions: Ibuprofen [Motrin 800 mg Tablet] 800 mg PO Q8H PRN #15 tab PRN Reason: Methocarbamol [Robaxin 750 mg Tablet] 750 mg PO TID PRN #10 tablet PRN Reason: Forms: Elevated Blood Pressure Referrals: [facility] [Provider Group] - Follow up as needed EARL SOLORIO MD [ACTIVE STAFF] - Follow up as needed
[2019-10-16 15:23] VITALS: BP 161/77
== END 2019-10-16 15:33 | disposition home or self-care (01) ==
LOC: ER 12:37
DX: M54.5 Low back pain (principal); R25.2 Cramp and spasm; I10 Essential (primary) hypertension; K42.9 Umbilical hernia without obstruction or gangrene; E11.9 Type 2 diabetes mellitus without complications
CPT/HCPCS: 99284; 96372; 36415; 85025; 80053; 81001; 76770; 76705; 93976; J1885